=== PATIENT | female | born 1945 | race Caucasian/White ===

== ENCOUNTER 2020-07-31 12:23 | Outpatient (REF) | payer MEDICARE, SELFPAY ==
--- NOTE | 2020-07-31 12:30 | MM_ITS ---
EXAMINATION: MM SCREENING DIGITAL BREAST TOMOSYNTHESIS, BILATERAL CLINICAL INFORMATION: Screening. Asymptomatic. The lifetime risk of breast cancer based on the Tyrer-Cuzick Model is 2%. COMPARISON: Mammography: 07/04/2019, 05/19/2018 TECHNIQUE: Digital breast tomosynthesis is performed in both the craniocaudal and mediolateral oblique views along with computer-aided detection (CAD). Synthesized 2D images are generated from the tomosynthesis. Additional right exaggerated CC view is provided. FINDINGS: There are scattered areas of fibroglandular density (ACR BI-RADS breast composition Category b). Breast tissue composition borders on heterogeneously dense in the anterior outer quadrants. Parenchymal pattern is similar to prior studies. There is no developing density or interval mass or architectural abnormality. There are scattered benign round and rim and coarse calcifications. Some benign grouped calcifications again noted central and upper outer left breast. No significant changes. MM/MM tomosynthesis screening BI IMPRESSION: No significant changes from prior studies. ASSESSMENT: BI-RADS 2: Benign RECOMMENDATION: Routine annual mammography screening. This patient's information was entered into a reminder system with a target due date for their next mammogram.
== END 2020-07-31 12:24 | disposition home or self-care (01) ==
LOC: HO.MAMMO 12:23
PROVIDERS: PCP Internal Medicine; Visit Provider Internal Medicine
DX: Z12.31 Encounter for screening mammogram for malignant neoplasm of breast (principal)
CPT/HCPCS: 77063; 77067

== ENCOUNTER 2020-08-06 13:05 | Outpatient (REF) | payer MEDICARE, SELFPAY ==
--- NOTE | 2020-08-06 13:13 | XR_ITS ---
EXAMINATION: XR HAND/WRIST, RIGHT CLINICAL INFORMATION: Fall with right hand/wrist pain COMPARISON: None TECHNIQUE: 3 views of the right hand/wrist FINDINGS: No fracture or dislocation. Alignment is anatomic. There is joint space narrowing at the first carpal metacarpal joint with sclerosis and osteophyte formation. Subchondral cyst formation noted. The digits are well aligned. Small osteophytes at the first interphalangeal joint. The soft tissues are unremarkable. XR/XR hand wrist RT IMPRESSION: No acute fracture or malalignment. Advanced degenerative changes of the first carpometacarpal joint.
== END 2020-08-06 13:06 | disposition home or self-care (01) ==
LOC: HO.HMGCX 13:05
PROVIDERS: PCP Internal Medicine; Visit Provider Nurse Practitioner Family
DX: S69.91XA Unspecified injury of right wrist, hand and finger(s), initial encounter (principal); W19.XXXA Unspecified fall, initial encounter; Z20.828 Contact with and (suspected) exposure to other viral communicable diseases
CPT/HCPCS: 73110; 73130; U0003

== ENCOUNTER → 2020-12-10 12:22 | Outpatient (BNVA) | payer MEDICARE, SELFPAY | PROVIDERS: PCP Internal Medicine; Visit Provider Internal Medicine Cardiovascular Disease | DX: I25.10 Atherosclerotic heart disease of native coronary artery without angina pectoris (principal); I10 Essential (primary) hypertension | CPT/HCPCS: 99212 ==

== ENCOUNTER 2021-01-16 09:30 | Outpatient (REF) | payer MEDICARE, SELFPAY ==
[2021-01-16 11:26] LABS: MANUAL DIFF FLAG NO
[2021-01-16 11:53] LABS: Basophils Absolute Auto 0.1 X10*3/uL (0.0-0.2); Eosinophils Absolute Auto 0.2 X10*3/uL (0.0-0.4); Eosinophils Percent Auto 3.8 % (0-4); Hematocrit 39.6 % (37-47); Hemoglobin 12.8 g/dl (12.0-16.0); Imm Gran Abs Auto 0.02 X10*3/uL (0.00-0.03); Imm Gran Pct Auto 0.3 % (0.0-0.4); Lymphocytes Absolute Auto 1.1 X10*3/uL (1.2-4.9); Lymphocytes Percent Auto 18.8 % (20-40); Mean Corpuscular HGB Conc 32.3 g/dl (31.0-35.0); Mean Corpuscular Volume 89.6 fL (80-98); Mean Platelet Volume 11.2 fL (9.4-12.3); Monocytes Absolute Auto 0.4 X10*3/uL (0.1-1.2); Monocytes Percent Auto 7.2 % (2-11); Neutrophils Percent Auto 68.9 % (45-73); Platelet Count 214 X10*3/uL (160-400); Red Blood Count 4.42 X10*6/uL (4.20-5.50); Red Cell Distribution Width 12.6 % (11.0-16.0); White Blood Count 5.8 X10*3/uL (4.8-10.8)
[2021-01-16 12:12] LABS: Alanine Aminotransferase 16 U/L (0-31); Albumin Level 4.2 g/dL (3.5-5.0); Alkaline Phosphatase 79 U/L (39-117); Anion Gap 15 (12-20); Aspartate Amino Transferase 20 U/L (5-31); Bilirubin Total 0.6 mg/dL (0.0-1.0); Blood Urea Nitrogen 13 mg/dL (9-16); Calcium 9.1 mg/dL (8.4-10.2); Carbon Dioxide 25 mmol/L (22-29); Chloride 104 mmol/L (96-108); Cholesterol 132 mg/dL; Estimated Glomerular Filt Rate 55; Glucose Random 89 mg/dL (60-115); HDL Cholesterol 52 mg/dL; LDL Cholesterol Calculated 57 mg/dl; Potassium 4.5 mmol/L (3.3-5.1); Sodium 139 mmol/L (135-145); Triglycerides 118 mg/dL
[2021-01-16 12:21] LABS: Thyroid Stimulating Hormone 1.05 uIU/mL (0.32-4.0)
[2021-01-16 12:35] LABS: ~HepC Num1 0.11 S/CO (0.00-0.79); ~Hepatitis C Antibody Nonreactive (Nonreactive)
== END 2021-01-16 09:31 | disposition home or self-care (01) ==
LOC: HO.HMGCLDS 09:30
PROVIDERS: Visit Provider Internal Medicine
DX: Z11.59 Encounter for screening for other viral diseases (principal); I10 Essential (primary) hypertension; E78.00 Pure hypercholesterolemia, unspecified; K21.9 Gastro-esophageal reflux disease without esophagitis
CPT/HCPCS: 36415; 80053; 80061; 84443; 85025; 86803

== ENCOUNTER 2021-01-21 08:16 | Day surgery (SDC) | payer MEDICARE, SELFPAY ==
[2021-01-15 15:46] VITALS: BMI 33.0
--- NOTE | 2021-01-16 12:19 | MHC.SHP ---
Pre-Procedural Eval Section A The patient is an INPATIENT: No The History & Physical has been completed within 30 days and I have reviewed it.: Yes Section B Chief Complaint: Cataract Right Eye Allergies: Allergies Allergy/AdvReac Type Severity Reaction Status Date / Time pentazocine [From Talwin] Allergy Severe HALLUCINATI Unverified 01/15/21 15:33 ONS trimethoprim [From Bactrim] Allergy Severe FACIAL RASH Unverified 01/15/21 15:33 meperidine [From Demerol] Allergy Unknown Verified 01/15/21 15:33 morphine Allergy Nausea and Verified 01/15/21 15:33 Vomiting sulfite Allergy Unknown Verified 01/15/21 15:33 codeine [Codeine] AdvReac Severe CONSTIPATION/ABDOMINAL Unverified 01/15/21 15:33 PAIN [id number]-[id number]-Rmq Reductase AdvReac Severe GI UPSET Unverified 01/15/21 15:33 Inhibitor [Hmg-Coa Reductase Inhibitors (Stati] amoxacillin Allergy Severe rash Uncoded 01/15/21 15:33 sulfa Allergy Severe rash Uncoded 01/15/21 15:33 Plan Diagnosis/Plan: Unchanged I have reviewed the history and physical and performed a pertinent physical examination on my patient. No changes have occurred unless specified.
--- NOTE | 2021-01-18 09:35 | HO.ANESPROP2 ---
Documented by User: Joanna Emerson 01/18/21 09:35 HPI - Anesthesia Eval Consult details Narrative: 75yo F for Right Cataract Extraction IOL Insertion No prev cataract on record PCP cleared PMFSH Active Problems Active Problems: All Active Problems (Updated 01/15/21 @ 15:46 by Brenda Elizabeth) Fall (Acute) Right wrist injury (Acute) Encounter for screening laboratory testing for COVID-19 virus (Acute) Hyperlipidemia (Acute) HTN (hypertension) (Acute) CAD (coronary artery disease) (Acute) Past Medical History Medical History (Updated 01/21/21 @ 10:19 by Keiry Bashir) Anxiety CAD (coronary artery disease) COVID-19 vaccine series completed HTN (hypertension) Hx of basal cell carcinoma Hyperlipidemia Peripheral neuropathy Family History Family History Father No problems noted. Mother CVD (cardiovascular disease) Surgical History Surgical History H/O angioplasty History of cataract extraction Hx laparoscopic cholecystectomy Hx of bilateral salpingo-oophorectomy Hx of fusion of cervical spine Hx of hernia repair Hx of spinal fusion Stented coronary artery Social History Social History Smoking Status: Never smoker Use of substances other than those prescribed or required for medical reasons: No Are you DNR?: No Advance Directives: No Advance Directives Information Provided: No Advance Directives on File: No Meds Allergies Allergy/AdvReac Type Severity Reaction Status Date / Time pentazocine [From Talwin] Allergy Severe HALLUCINATI Verified 01/21/21 09:41 ONS trimethoprim [From Bactrim] Allergy Severe FACIAL RASH Verified 01/21/21 09:41 meperidine [From Demerol] Allergy Unknown Verified 01/15/21 15:33 morphine Allergy Nausea and Verified 01/15/21 15:33 Vomiting sulfite Allergy Unknown Verified 01/15/21 15:33 codeine [Codeine] AdvReac Severe CONSTIPATION/ABDOMINAL Verified 01/21/21 09:41 PAIN [id number]-Yqe Reductase AdvReac Severe GI UPSET Verified 01/21/21 09:41 Inhibitor [Hmg-Coa Reductase Inhibitors (Stati] amoxacillin Allergy Severe rash Uncoded 01/15/21 15:33 sulfa Allergy Severe rash Uncoded 01/15/21 15:33 Home Medications Medication Instructions Recorded Confirmed Last Taken Type azelastine 137 mcg (0.1 %) nasal 2 spray INTRANASAL 08/06/20 12/10/20 Unknown History spray aerosol collagenase clostridium histo. 250 TOPICAL DAILY 08/06/20 12/10/20 Unknown History unit/gram topical ointment ezetimibe 10 mg tablet 10 mg PO DAILY 08/06/20 01/15/21 Unknown History famotidine 20 mg tablet 20 mg PO BID PRN 08/06/20 01/15/21 01/21/21 History gabapentin 300 mg capsule 300 mg PO TID 08/06/20 01/15/21 01/21/21 History losartan 100 mg tablet 100 mg PO DAILY 08/06/20 01/15/21 Unknown History nitroglycerin 0.4 mg sublingual 0.4 mg SUBLINGUAL .Q5MINS PRN 08/06/20 01/15/21 Unknown History tablet sertraline 50 mg tablet 50 mg PO DAILY 08/06/20 01/15/21 01/21/21 History tizanidine 4 mg tablet 4 mg PO TID PRN 08/06/20 01/15/21 Unknown History Exam Exam Date and Time: January 18, 2021 0935 Height,Weight and Vital Signs: Height 5 ft 1 in Weight 79.379 kg Assessment and Plan Assessment Anesthesia Assessment: Chart Reviewed Documented by User: Keiry Bashir 01/21/21 10:19 [facility] Past Medical History Medical History (Updated 01/21/21 @ 10:19 by Keiry Bashir) Anxiety CAD (coronary artery disease) COVID-19 vaccine series completed HTN (hypertension) Hx of basal cell carcinoma Hyperlipidemia Peripheral neuropathy Family History Family History Father No problems noted. Mother CVD (cardiovascular disease) Family history of problems with anesthesia: No Surgical History Surgical History H/O angioplasty History of cataract extraction Hx laparoscopic cholecystectomy Hx of bilateral salpingo-oophorectomy Hx of fusion of cervical spine Hx of hernia repair Hx of spinal fusion Stented coronary artery History of Problems with Anesthesia: No Social History Social History Smoking Status: Never smoker Use of substances other than those prescribed or required for medical reasons: No Are you DNR?: No Advance Directives: No Advance Directives Information Provided: No Advance Directives on File: No Meds Allergies Allergy/AdvReac Type Severity Reaction Status Date / Time pentazocine [From Talwin] Allergy Severe HALLUCINATI Verified 01/21/21 09:41 ONS trimethoprim [From Bactrim] Allergy Severe FACIAL RASH Verified 01/21/21 09:41 meperidine [From Demerol] Allergy Unknown Verified 01/15/21 15:33 morphine Allergy Nausea and Verified 01/15/21 15:33 Vomiting sulfite Allergy Unknown Verified 01/15/21 15:33 codeine [Codeine] AdvReac Severe CONSTIPATION/ABDOMINAL Verified 01/21/21 09:41 PAIN Vzpjctt-Tpq-Xur Reductase AdvReac Severe GI UPSET Verified 01/21/21 09:41 Inhibitor [Hmg-Coa Reductase Inhibitors (Stati] amoxacillin Allergy Severe rash Uncoded 01/15/21 15:33 sulfa Allergy Severe rash Uncoded 01/15/21 15:33 Home Medications Medication Instructions Recorded Confirmed Last Taken Type azelastine 137 mcg (0.1 %) nasal 2 spray INTRANASAL 08/06/20 12/10/20 Unknown History spray aerosol collagenase clostridium histo. 250 TOPICAL DAILY 08/06/20 12/10/20 Unknown History unit/gram topical ointment ezetimibe 10 mg tablet 10 mg PO DAILY 08/06/20 01/15/21 Unknown History famotidine 20 mg tablet 20 mg PO BID PRN 08/06/20 01/15/21 01/21/21 History gabapentin 300 mg capsule 300 mg PO TID 08/06/20 01/15/21 01/21/21 History losartan 100 mg tablet 100 mg PO DAILY 08/06/20 01/15/21 Unknown History nitroglycerin 0.4 mg sublingual 0.4 mg SUBLINGUAL .Q5MINS PRN 08/06/20 01/15/21 Unknown History tablet sertraline 50 mg tablet 50 mg PO DAILY 08/06/20 01/15/21 01/21/21 History tizanidine 4 mg tablet 4 mg PO TID PRN 08/06/20 01/15/21 Unknown History Exam Height,Weight and Vital Signs: Vital Signs Temp Pulse Resp BP Pulse Ox 01/21/21 10:11 97.8 F 65 16 155/72 H 99 Airway Mallampati Class: II TM Dist: >3cm Neck ROM: Full (S/ p cervical fusion) Partial: Upper Heart: RRR Lungs: CTAB Assessment and Plan Assessment Anesthesia Assessment: Anesthesia Plan Discussed and Chart Reviewed Final Anesthetic Review ASA Class: III Final Preanesthetic Review: No Changes in Pt Med Stat, Meds/Allgs Chart Reviewed, Consent Obtained/Reviewed and Anes Risks/Benef Reviewed Patient Risk: Intermediate Procedure Risk: Low Assessment/Block/Sedation in SS: Assess/Block/Sedation-SS Anesthetic Plan Anesthetic Plan: MAC: Disposition: Standard PACU
[2021-01-21] MEDS: Tetracaine HCl/PF 0.5% Oph Sol 4 ML DROPS 1 DROP EYE-RIGHT (09:52)
[2021-01-21] MEDS: Tropicamide 1 % Ophth Sol 3 ML BTL 1 DROP EYE-RIGHT ×3 (09:54→10:02)
[2021-01-21] MEDS: Phenylephrine HCL 2.5% Oph SoL 2 ML BOTTLE 1 DROP EYE-RIGHT ×3 (09:57→10:04)
[2021-01-21 10:11] VITALS: BP 155/72; PULSE 65; RESP 16; TEMP 36.6; O2SAT 99
[2021-01-21] MEDS: Lactated Ringers 500 ML 50 ML IV (10:11)
--- NOTE | 2021-01-21 11:15 | HO.PNOPHT ---
Ophthalmology Procedure Procedure Date of Service: 01/21/21 Ophthalmology Viscoelastic: Healon Duet Dual Pack Pro Ophthalmology Lenses: TECNIS [id number] (22.5) Procedure Notes: PREOPERATIVE DIAGNOSIS: Decreased visual acuity right eye secondary to cataract POSTOPERATIVE DIAGNOSIS: Same PROCEDURE: Right cataract extraction with intraocular lens insertion SURGEON: Jus Juarez M.D. ANESTHESIA: Topical/MAC ESTIMATED BLOOD LOSS: None COMPLICATIONS: None After obtaining informed consent, the patient was brought to the operating room suite and placed in the supine position. After adequate sedation per anesthesia, topical drops of Tetracaine were given to the right eye. The eye was then prepped and draped in the usual sterile fashion. The operating room microscope was then positioned over the operative eye and a lid speculum placed. A paracentesis was created. Viscoelastic was then instilled into the anterior chamber. A three plane incision was then created temporally, utilizing a 2.85 mm keratome. Capsulotomy forceps were then utilized to create a circular tear capsulotomy. Hydrodissection and hydrodelineation were carried out until adequate mobilization of the nucleus occurred. Phacoemulsification was then utilized to remove the dense central nucleus followed by removal of the cortical material utilizing the automated aspiration irrigation unit. Viscoelastic was instilled into the posterior capsular bag followed by placement of a posterior chamber intraocular lens without difficulty. The residual Viscoelastic was then removed utilizing the automated IA machine. The wound was checked and found to be watertight. The patient tolerated the procedure well and the lid speculum was removed. Intracameral injection of Vigamox 0.1 mL followed by a subtenon injection of Kenalog-40 0.2 mL were administered. The patient will be seen in the a.m.
[2021-01-21 11:19] VITALS: BP 145/68; PULSE 61; RESP 16; TEMP 36.3; O2SAT 98
== END 2021-01-21 11:42 | disposition home or self-care (01) ==
PROVIDERS: PCP Internal Medicine; Visit Provider Ophthalmology
PROC: (CPT 66985; principal; 2021-01-21 10:30)
DX: H25.11 Age-related nuclear cataract, right eye (principal); H54.7 Unspecified visual loss; Z96.1 Presence of intraocular lens; I10 Essential (primary) hypertension; Z79.899 Other long term (current) drug therapy; Z85.828 Personal history of other malignant neoplasm of skin; Z88.1 Allergy status to other antibiotic agents; Z88.2 Allergy status to sulfonamides; Z88.8 Allergy status to other drugs, medicaments and biological substances
CPT/HCPCS: 66984; J2250; J3010; J3300; V2632

== ENCOUNTER → 2021-01-31 13:06 | Outpatient (BNVA) | payer MEDICARE, SELFPAY | PROVIDERS: PCP Internal Medicine; Visit Provider Urology | DX: N32.81 Overactive bladder (principal); N39.41 Urge incontinence | CPT/HCPCS: 51798; 81002; 99212 ==

== ENCOUNTER 2021-05-03 12:35 | Outpatient (REF) | payer MEDICARE, SELFPAY ==
--- NOTE | ~2021-05-03 | MM_ITS ---
EXAMINATION: BONE DENSITOMETRY CLINICAL INDICATION: Menopausal. COMPARISON: Previous BD dated 03/13/2015 and baseline BD dated 06/24/2011. TECHNIQUE: Using a [employer] DXA System (software version: 13.1) manufactured by [employer], dual-energy x-ray absorptiometry was performed of the lumbar spine, left hip, and left forearm radius 33%. The images are of good technical quality. Summary results are attached. FINDINGS: AP SPINE L1-L2 (excluding L3 and L4): The data of L1-L4 has been changed to exclude the L3 and L4 vertebral bodies, because hardware at these levels may cause overestimation of lumbar spine density. Current: BMD 1.501 g/cm2, Z-score 4.2, T-score 2.8, normal, 15.9% increase from previous, 18.3% increase from baseline (<5% change is not significant). Prior: BMD 1.295 g/cm2. Baseline: BMD 1.269 g/cm2. LEFT FEMUR, NECK: Current: BMD 0.744 g/cm2, Z-score -0.4, T-score -2.1, osteopenia. Prior: BMD 0.785 g/cm2. Baseline: BMD 0.831 g/cm2. LEFT FEMUR, TOTAL: Current: BMD 0.840 g/cm2, Z-score 0.2, T-score -1.3, osteopenia, 8.7% decrease from previous, 8.5% decrease from baseline (<5% change is not significant). Prior: BMD 0.920 g/cm2. Baseline: BMD 0.918 g/cm2. LEFT FOREARM RADIUS 33%: BMD 0.702 g/cm2, Z-score 0.5, T-score -2.0, osteopenia, 9.2% decrease from previous, 10.7% decrease from baseline (<5% change is not significant). Prior: BMD 0.773 g/cm2. Baseline: BMD 0.786 g/cm2. IDENTIFIED RISK FACTORS: Early menopause, secondary osteoporosis, height loss, anticonvulsant, hysterectomy, bilateral oophorectomy. HISTORY OF FRACTURE: None listed. MEDICATIONS: Calcium supplements or multivitamin, vitamin D. MM/XR DEXA axial skeleton IMPRESSION: 1. DIAGNOSIS: Osteopenia based on the lowest T-score value of -2.1 in the femoral neck applying World Health Organization criteria. 2. 10-YEAR FRACTURE RISK PREDICTION, FRAX: Major osteoporotic fracture (clinical spine, forearm, hip or shoulder) 14.3%. Hip fracture 4.0%. 3. Treatment Recommendations: NOF guidelines recommend consideration for treatment in postmenopausal women and men age 50 and older presenting with the following: -A hip or vertebral (clinical or morphometric) fracture. -T-score less than or equal to -2.5 at the femoral neck or spine after appropriate evaluation to exclude secondary causes. -Low bone mass at the hip or spine and a 10-year fracture probability by FRAX of greater than or equal to 3% for hip fracture or greater than or equal to 20% for major osteoporotic fracture based on the [place] adapted WHO algorithm. 4. Other Recommendations: All treatment decisions require clinical judgment and consideration of individual patient factors, including patient preferences, comorbidities, previous drug use, risk factors not captured in the FRAX model (e.g. frailty, falls, vitamin D deficiency, increased bone turnover, interval significant decline in bone density) and possible under or overestimation of fracture risk by FRAX. Additional medical evaluation for secondary cause of low bone mineral density may be appropriate. FUTURE SCAN RECOMMENDATION: People with diagnosed cases of osteoporosis or at high risk for fracture should have regular bone mineral density tests. For patients eligible for Medicare, routine testing is allowed once every 2 years. The testing frequency can be increased to one year for patients who have rapidly progressing disease, those who are receiving or discontinuing medical therapy to restore bone mass, or have additional risk factors.
== END 2021-05-03 12:36 | disposition home or self-care (01) ==
LOC: HO.MAMMO 12:35
PROVIDERS: PCP Internal Medicine; Visit Provider Internal Medicine
DX: Z13.820 Encounter for screening for osteoporosis (principal); Z78.0 Asymptomatic menopausal state; Z79.899 Other long term (current) drug therapy; Z90.710 Acquired absence of both cervix and uterus; Z90.722 Acquired absence of ovaries, bilateral
CPT/HCPCS: 77080

== ENCOUNTER 2021-08-02 10:37 | Outpatient (REF) | payer MEDICARE, SELFPAY ==
--- NOTE | ~2021-08-02 | MM_ITS ---
EXAMINATION: MM SCREENING DIGITAL BREAST TOMOSYNTHESIS, BILATERAL CLINICAL INFORMATION: Screening. Asymptomatic. The lifetime risk of breast cancer based on the Tyrer-Cuzick Model is 1%. COMPARISON: Mammography: 07/01/2020, 07/04/2019, 05/19/2018 TECHNIQUE: Digital breast tomosynthesis is performed in both the craniocaudal and mediolateral oblique views along with computer-aided detection (CAD). Synthesized 2D images are generated from the tomosynthesis. Additional exaggerated right CC view is provided. FINDINGS: There are scattered areas of fibroglandular density (ACR BI-RADS breast composition Category b). Breast tissue composition borders on heterogeneously dense. Parenchymal pattern is similar to prior studies. There are scattered stable asymmetries. No developing density or interval mass or architectural abnormality. There are scattered benign round and some ductal secretory and rim calcifications. There are benign grouped coarse calcifications again seen posterior 3:00 left breast. The axilla and skin contours are unremarkable. MM/MM tomosynthesis screening BI IMPRESSION: No mammographic evidence of malignancy. ASSESSMENT: BI-RADS 2: Benign RECOMMENDATION: Routine annual mammography screening. This patient's information was entered into a reminder system with a target due date for their next mammogram.
[2021-08-02 13:54] LABS: MANUAL DIFF FLAG NO
[2021-08-02 14:02] LABS: Basophils Percent Auto 0.7 % (0-2); Eosinophils Absolute Auto 0.2 X10*3/uL (0.0-0.4); Eosinophils Percent Auto 2.5 % (0-4); Hematocrit 39.4 % (37.0-47.0); Hemoglobin 12.9 g/dl (12.0-16.0); Imm Gran Abs Auto 0.01 X10*3/uL (0.00-0.03); Imm Gran Pct Auto 0.2 % (0.0-0.4); Lymphocytes Percent Auto 16.7 % (20-40); Mean Corpuscular HGB Conc 32.7 g/dl (31.0-35.0); Mean Corpuscular Hemoglobin 28.8 pg (27.0-33.0); Mean Corpuscular Volume 87.9 fL (80.0-98.0); Mean Platelet Volume 11.4 fL (9.4-12.3); Monocytes Absolute Auto 0.4 X10*3/uL (0.1-1.2); Monocytes Percent Auto 7.4 % (2-11); Neutrophils Absolute Auto 4.3 x10*3/uL (2.0-8.3); Neutrophils Percent Auto 72.5 % (45-73); Platelet Count 224 X10*3/uL (160-400); Red Blood Count 4.48 X10*6/uL (4.20-5.50); Red Cell Distribution Width 12.7 % (11.0-16.0)
[2021-08-02 14:11] LABS: Appearance Urine CLEAR; Color Urine YELLOW; Glucose Urine UA NEG (NEG); Leukocyte Esterase Urine NEG (NEG); Nitrite Urine NEG (NEG); PH 6.5 (5.0-8.0); Urine Blood NEG (NEG); Urine Ketones NEG (NEG); Urine Protein NEG (NEG-TRACE)
[2021-08-02 14:19] LABS: Alanine Aminotransferase 20 U/L (0-31); Albumin Level 4.2 g/dL (3.5-5.0); Alkaline Phosphatase 76 U/L (39-117); Anion Gap 14 (12-20); Aspartate Amino Transferase 22 U/L (5-31); Bilirubin Total 0.9 mg/dL (0.0-1.0); Blood Urea Nitrogen 11 mg/dL (9-16); Calcium 9.2 mg/dL (8.4-10.2); Carbon Dioxide 26 mmol/L (22-29); Chloride 101 mmol/L (96-108); Cholesterol 139 mg/dL; Estimated Glomerular Filt Rate 55; Glucose Random 89 mg/dL (60-115); HDL Cholesterol 56 mg/dL; LDL Cholesterol Calculated 60 mg/dl; Sodium 137 mmol/L (135-145); Total Protein 7.2 g/dL (6.5-8.0); Triglycerides 118 mg/dL
== END 2021-08-02 10:38 | disposition home or self-care (01) ==
LOC: HO.MAMMO 10:37
PROVIDERS: PCP Internal Medicine; Visit Provider Internal Medicine
DX: Z12.31 Encounter for screening mammogram for malignant neoplasm of breast (principal); I10 Essential (primary) hypertension; I25.10 Atherosclerotic heart disease of native coronary artery without angina pectoris; E78.00 Pure hypercholesterolemia, unspecified
CPT/HCPCS: 36415; 77063; 77067; 80053; 80061; 81003; 84443; 85025

== ENCOUNTER 2021-08-06 14:52 | Outpatient (REF) | payer MEDICARE, SELFPAY ==
[2021-08-06 17:33] LABS: Vitamin B12 746 pg/mL (200-900)
== END 2021-08-06 14:53 | disposition home or self-care (01) ==
LOC: HO.HMGCLDS 14:52
PROVIDERS: PCP Internal Medicine; Visit Provider Internal Medicine
DX: R41.3 Other amnesia (principal)
CPT/HCPCS: 36415; 82607

== ENCOUNTER 2021-08-09 07:16 | Outpatient (REF) | payer MEDICARE, SELFPAY ==
--- NOTE | ~2021-08-09 | MR_ITS ---
MRI OF THE BRAIN WITHOUT IV CONTRAST INDICATION: Short-term memory loss. COMPARISON: Brain MRI 02/04/2019. TECHNIQUE: Multiplanar multisequence MR imaging of the brain was obtained without IV contrast. FINDINGS: There is no hydrocephalus, extra-axial surface collection, or herniation. There is global cerebral volume loss. T2 signal changes throughout the supratentorial white matter, most likely mild to moderate chronic microangiopathy. The major flow voids at the skull base are preserved. There is no acute infarct on diffusion-weighted imaging. There is no intracranial hemorrhage on the gradient recalled echo acquisition. The midline structures are normal. The cerebellar tonsils are normally positioned. The cerebellum and brainstem are normal. The craniocervical junction is normal. Osseous marrow signal intensity is homogenous. The visualized soft tissues are unremarkable. MR/MR head/brain wo con IMPRESSION: - No acute intracranial findings. - There is global cerebral volume loss and there is mild to moderate chronic microangiopathy.
== END 2021-08-09 07:17 | disposition home or self-care (01) ==
LOC: HO.MRI 07:16
PROVIDERS: Visit Provider Internal Medicine
DX: R41.3 Other amnesia (principal)
CPT/HCPCS: 70551

== ENCOUNTER → 2021-12-23 12:33 | Outpatient (BNVA) | payer MEDICARE, SELFPAY | PROVIDERS: PCP Internal Medicine; Referring Provider Internal Medicine; Visit Provider Internal Medicine Cardiovascular Disease | DX: I25.10 Atherosclerotic heart disease of native coronary artery without angina pectoris (principal); I10 Essential (primary) hypertension; Z79.82 Long term (current) use of aspirin; Z79.899 Other long term (current) drug therapy | CPT/HCPCS: 93005; 99212 ==

== ENCOUNTER 2022-03-13 10:30 | Outpatient (REF) | payer MEDICARE, SELFPAY ==
[2022-03-13 13:56] LABS: MANUAL DIFF FLAG NO
[2022-03-13 14:00] LABS: Appearance Urine CLEAR; Color Urine YELLOW; Glucose Urine UA NEG (NEG); Leukocyte Esterase Urine 2+ (NEG); Nitrite Urine NEG (NEG); PH 6.5 (5.0-8.0); Urine Blood NEG (NEG); Urine Ketones NEG (NEG); Urine Protein NEG (NEG-TRACE)
[2022-03-13 14:10] LABS: Basophils Absolute Auto 0.1 X10*3/uL (0.0-0.2); Basophils Percent Auto 0.8 % (0-2); Eosinophils Absolute Auto 0.2 X10*3/uL (0.0-0.4); Eosinophils Percent Auto 3.7 % (0-4); Hematocrit 41.1 % (37.0-47.0); Hemoglobin 13.4 g/dl (12.0-16.0); Imm Gran Abs Auto 0.02 X10*3/uL (0.00-0.03); Imm Gran Pct Auto 0.3 % (0.0-0.4); Lymphocytes Absolute Auto 1.2 X10*3/uL (1.2-4.9); Lymphocytes Percent Auto 18.3 % (20-40); Mean Corpuscular HGB Conc 32.6 g/dl (31.0-35.0); Mean Corpuscular Hemoglobin 28.3 pg (27.0-33.0); Mean Corpuscular Volume 86.9 fL (80.0-98.0); Mean Platelet Volume 11.5 fL (9.4-12.3); Monocytes Absolute Auto 0.4 X10*3/uL (0.1-1.2); Monocytes Percent Auto 6.8 % (2-11); Neutrophils Absolute Auto 4.4 x10*3/uL (2.0-8.3); Neutrophils Percent Auto 70.1 % (45-73); Platelet Count 215 X10*3/uL (160-400); Red Blood Count 4.73 X10*6/uL (4.20-5.50); White Blood Count 6.3 X10*3/uL (4.8-10.8)
[2022-03-13 14:12] LABS: RBC Urine 0 /HPF (0); Squamous Epithelial Cell Urine 1+ /LPF
[2022-03-13 14:17] LABS: Alanine Aminotransferase 13 U/L (0-31); Albumin Level 4.1 g/dL (3.5-5.0); Alkaline Phosphatase 74 U/L (39-117); Anion Gap 12 (12-20); Aspartate Amino Transferase 15 U/L (5-31); Bilirubin Total 0.6 mg/dL (0.0-1.0); Blood Urea Nitrogen 12 mg/dL (9-16); Calcium 9.2 mg/dL (8.4-10.2); Carbon Dioxide 25 mmol/L (22-29); Chloride 103 mmol/L (96-108); Cholesterol 128 mg/dL; Estimated Glomerular Filt Rate 52; Glucose Random 97 mg/dL (60-115); HDL Cholesterol 58 mg/dL; LDL Cholesterol Calculated 53 mg/dl; Potassium 4.2 mmol/L (3.3-5.1); Sodium 136 mmol/L (135-145); Triglycerides 85 mg/dL
[2022-03-13 14:32] LABS: Thyroid Stimulating Hormone 1.67 uIU/mL (0.32-4.0)
== END 2022-03-13 10:31 | disposition home or self-care (01) ==
LOC: HO.HMGCLDS 10:30
PROVIDERS: PCP Internal Medicine; Visit Provider Internal Medicine
DX: E78.00 Pure hypercholesterolemia, unspecified (principal); I10 Essential (primary) hypertension; M15.9 Polyosteoarthritis, unspecified
CPT/HCPCS: 36415; 80053; 80061; 81001; 84443; 85025

== ENCOUNTER 2022-08-04 13:22 | Outpatient (REF) | payer MEDICARE, SELFPAY ==
--- NOTE | ~2022-08-04 | MM_ITS ---
EXAMINATION: MM SCREENING DIGITAL BREAST TOMOSYNTHESIS, BILATERAL CLINICAL INFORMATION: Screening. Asymptomatic. COMPARISON: Mammography: 08/02/2021, 07/31/2020, 07/04/2019 TECHNIQUE: Digital breast tomosynthesis is performed in both the craniocaudal and mediolateral oblique views along with computer-aided detection (CAD). Synthesized 2D images are generated from the tomosynthesis. FINDINGS: There are scattered areas of fibroglandular density (ACR BI-RADS breast composition Category b). Parenchymal pattern is similar to prior studies. There is no developing density or interval mass or architectural abnormality. Again, there are scattered bilateral benign round and rim calcifications as well as grouped coarse calcifications posterior 3:00 left breast. A few scattered tiny benign circumscribed oil cysts are present in both the anterior breasts. The axilla and skin contours are unremarkable. No significant changes. MM/MM tomosynthesis screening BI IMPRESSION: No mammographic evidence of malignancy. ASSESSMENT: BI-RADS 2: Benign RECOMMENDATION: Routine annual mammography screening. This patient's information was entered into a reminder system with a target due date for their next mammogram.
== END 2022-08-04 13:23 | disposition home or self-care (01) ==
LOC: HO.MAMMO 13:22
PROVIDERS: Visit Provider Internal Medicine
DX: Z12.31 Encounter for screening mammogram for malignant neoplasm of breast (principal)
CPT/HCPCS: 77063; 77067

== ENCOUNTER → 2022-12-23 12:46 | Outpatient (BNVA) | payer MEDICARE, SELFPAY | PROVIDERS: PCP Internal Medicine; Referring Provider Internal Medicine; Visit Provider Internal Medicine Cardiovascular Disease | DX: I25.10 Atherosclerotic heart disease of native coronary artery without angina pectoris (principal); I10 Essential (primary) hypertension; Z95.5 Presence of coronary angioplasty implant and graft | CPT/HCPCS: 93005; 99212 ==

== ENCOUNTER 2023-01-08 09:27 | Outpatient (REF) | payer MEDICARE, SELFPAY ==
[2023-01-08 11:09] LABS: MANUAL DIFF FLAG NO
[2023-01-08 11:26] LABS: Basophils Absolute Auto 0.1 X10*3/uL (0.0-0.2); Eosinophils Absolute Auto 0.2 X10*3/uL (0.0-0.4); Eosinophils Percent Auto 3.1 % (0-4); Hematocrit 40.1 % (37.0-47.0); Hemoglobin 13.2 g/dl (12.0-16.0); Imm Gran Abs Auto 0.02 X10*3/uL (0.00-0.03); Imm Gran Pct Auto 0.3 % (0.0-0.4); Lymphocytes Absolute Auto 1.1 X10*3/uL (1.2-4.9); Lymphocytes Percent Auto 15.9 % (20-40); Mean Corpuscular HGB Conc 32.9 g/dl (31.0-35.0); Mean Corpuscular Hemoglobin 29.4 pg (27.0-33.0); Mean Corpuscular Volume 89.3 fL (80.0-98.0); Mean Platelet Volume 11.2 fL (9.4-12.3); Monocytes Absolute Auto 0.4 X10*3/uL (0.1-1.2); Monocytes Percent Auto 6.3 % (2-11); Neutrophils Absolute Auto 4.9 x10*3/uL (2.0-8.3); Neutrophils Percent Auto 73.4 % (45-73); Platelet Count 212 X10*3/uL (160-400); Red Blood Count 4.49 X10*6/uL (4.20-5.50); Red Cell Distribution Width 12.5 % (11.0-16.0); White Blood Count 6.7 X10*3/uL (4.8-10.8)
[2023-01-08 11:43] LABS: Alanine Aminotransferase 19 U/L (0-31); Alkaline Phosphatase 80 U/L (39-117); Anion Gap 14 (12-20); Aspartate Amino Transferase 18 U/L (5-31); Bilirubin Total 0.7 mg/dL (0.0-1.0); Blood Urea Nitrogen 11 mg/dL (9-16); Calcium 8.9 mg/dL (8.4-10.2); Carbon Dioxide 25 mmol/L (22-29); Chloride 104 mmol/L (96-108); Cholesterol 130 mg/dL; Estimated Glomerular Filt Rate 52; Glucose Random 90 mg/dL (60-115); HDL Cholesterol 48 mg/dL; LDL Cholesterol Calculated 65 mg/dl; Potassium 4.4 mmol/L (3.3-5.1); Sodium 139 mmol/L (135-145); Total Protein 6.5 g/dL (6.5-8.0); Triglycerides 89 mg/dL
[2023-01-08 11:57] LABS: Estimated Average Glucose 105 mg/dL; Hemoglobin A1c % 5.3 %
[2023-01-08 12:00] LABS: Appearance Urine Clear; Color Urine Yellow; Glucose Urine UA Negative (Negative); Leukocyte Esterase Urine Small (1+) (Negative); Nitrite Urine Negative (Negative); Specific Gravity - Urine 1.015 (1.005-1.025); Thyroid Stimulating Hormone 1.44 uIU/mL (0.32-4.0); UMIC TRIGGER UA YES; Urine Blood Negative (Negative); Urine Ketones Negative (Negative); Urine Protein Negative (Neg-Trace)
[2023-01-08 12:07] LABS: Bacteria Urine None Seen (None Seen); Hyaline Casts Urine 0-2 /LPF (0-2); RBC Urine 0-2 /HPF (0-2)
== END 2023-01-08 09:28 | disposition home or self-care (01) ==
LOC: HO.HMGCLDS 09:27
PROVIDERS: PCP Internal Medicine; Visit Provider Internal Medicine
DX: I10 Essential (primary) hypertension (principal); R73.01 Impaired fasting glucose; R35.0 Frequency of micturition; E78.00 Pure hypercholesterolemia, unspecified
CPT/HCPCS: 36415; 80053; 80061; 81001; 81003; 83036; 84443; 85025

== ENCOUNTER → 2023-12-15 14:22 | Outpatient (REF) | payer MEDICARE, SELFPAY ==
--- NOTE | 2023-12-15 14:25 | CA_ITS ---
Transthoracic Echocardiogram Patient (Last, First, Middle): Yara Bolivar L Gender: Female Date of : 1945 Age: 78 Procedure Date: 12/15/2023 Procedure Type: Transthoracic Echocardiogram Location: OP Height: 152.4 cm Weight: 80.74 kg BSA: 1.78 m2 Heart Rate: bpm BP: 124 / 66 mmHg Applications Administrator: BETO Referring MD: Edd Arevalo MD Symptoms: R60.0 - Localized edema Study Quality: Adequate ECG Rhythm: Sinus Conclusions: - The left ventricular systolic function is normal. The calculated ejection fraction is 61% by biplane method. - There is mild aortic valve regurgitation. - There is mild mitral annular calcification. - Small plaque is seen in the sino tubular ridge. Findings Left Ventricle Normal left ventricular cavity size. There is normal left ventricular wall thickness. The left ventricular systolic function is normal. The calculated ejection fraction is 61% by biplane method. There is no evidence of regional wall motion abnormalities. Evidence suggests grade I (mild) diastolic dysfunction. LV peak GLS -18.8%. Right Ventricle Normal right ventricular cavity size and systolic function. Atria Both atria are normal in size. Aortic Valve There is a normal trileaflet aortic valve. There is mild calcification of the aortic valve. There is mild aortic valve regurgitation. No significant aortic stenosis. Mitral Valve There is mild mitral annular calcification. There is no mitral valve regurgitation. There is no mitral valve stenosis. Pulmonic Valve The pulmonic valve is likely normal. Tricuspid Valve There is trace tricuspid valve regurgitation. There is no evidence of pulmonary hypertension. Great Vessels The asc aorta is normal in size. Small plaque is seen in the sino tubular ridge. Venous The inferior vena cava is mildly dilated and collapses greater than 50% with inspiration. Pericardium/Pleural There is no evidence of pericardial effusion. Prior Study Comparison No significant change compared to prior study dated: 03/30/2020. Measurements 2D Linear Measurements IVSd: 0.95 0.6-0.9/0.6-1.0 cm LVIDd: 3.87 3.9-5.3/4.2-5.9 cm LVIDd Index: 2.17 2.4-3.2/2.2-3.1 cm/m2 LVIDs: 2.34 2.0-3.6 cm LVPWd: 1.03 0.7-1.1 cm LA Diam: 3.20 2.7-3.8/3.0-4.0 cm LAIDs Index: 1.80 1.5-2.3 cm/m2 LV Mass: 148.14 67-162/88-224 g LV Mass Index: 83.23 43-95/49-115 g/m2 LVOT Diam: 1.80 3.0+(-)1.3 cm 2D Systolic Function EF 4C: 61.10 >55% EF 2C: 61.30 >55% EF BiP: 61.20 >55% Mitral Valve MV Pk E: 0.90 MV PK A: 0.95 MV Decel Time: 234.00 E/A: 0.90 E'Lateral: 3.92 E'Medial: 6.20 E/E' Med: 14.40 E/E' Lat: 22.80 PHT: 68.00 MVA PHT: 3.24 Decel [place]: 3.83 Aortic Valve AoV Pk Pierce: 2.01 AoV Mn Pierce: 1.36 AoV VTI: 0.47 AoV Pk Grad: 16.00 Aov Mn Grad: 8.00 GILES Cont.VTI: 1.55 AI Pk Pierce: 3.73 AI [place]: 2.00 LVOT LVOT Pk Pierce: 1.24 LVOT Mn Pierce: 0.81 LVOT VTI: 0.29 LVOT Pk Grad: 6.00 LVOT Mn Grad: 3.00 LVOT Diam: 1.80 LVOT Area: 2.54 Diastolic Function MV Pk E: 0.90 MV Pk A: 0.95 E/A: 0.90 E'Medial: 6.20 E/E' Med: 14.40 E' Laterial: 3.92 E/E' Lat: 22.80 Right Ventricle TAPSE (mm): 19.50 TVS' Pierce: 13.10 Tricuspid Valve TR Pk Pierce: 1.87 TR Pk Grad: 14.00 RA Press: 8.00 RVSP: 22.00 Great Vessels Aorta Sinus of Valsalva: 2.97 2.0-3.[address] [place]: 1.80 1.7-3.4 cm Ao Asc: 3.20 2.1-3.4 cm Updated in Other Vendor System with Status of Final Dominic Aguiar MD electronically signed on 12/15/2023 4:23:57 PM with status of Final
== END ==
LOC: HO.CARD 14:22
PROVIDERS: PCP Internal Medicine; Visit Provider Internal Medicine Cardiovascular Disease
DX: I25.10 Atherosclerotic heart disease of native coronary artery without angina pectoris (principal); I10 Essential (primary) hypertension; R60.0 Localized edema
CPT/HCPCS: 93306; 93356

== ENCOUNTER → 2023-12-15 14:25 | Outpatient (BNV) | payer MEDICARE, SELFPAY | PROVIDERS: PCP Internal Medicine; Visit Provider Internal Medicine | DX: I35.1 Nonrheumatic aortic (valve) insufficiency (principal); I34.81 Nonrheumatic mitral (valve) annulus calcification | CPT/HCPCS: 93306; 93356 ==

== ENCOUNTER 2023-12-23 09:29 | Outpatient (REF) | payer MEDICARE, SELFPAY ==
[2023-12-23 10:23] LABS: MANUAL DIFF FLAG NO
[2023-12-23 10:34] LABS: Basophils Absolute Auto 0.1 X10*3/uL (0.0-0.2); Basophils Percent Auto 0.9 % (0-2); Eosinophils Absolute Auto 0.3 X10*3/uL (0.0-0.4); Eosinophils Percent Auto 4.5 % (0-4); Hematocrit 40.4 % (37.0-47.0); Hemoglobin 13.4 g/dl (12.0-16.0); Imm Gran Abs Auto 0.02 X10*3/uL (0.00-0.03); Imm Gran Pct Auto 0.3 % (0.0-0.4); Lymphocytes Percent Auto 15.1 % (20-40); Mean Corpuscular HGB Conc 33.2 g/dl (31.0-35.0); Mean Corpuscular Hemoglobin 28.9 pg (27.0-33.0); Mean Corpuscular Volume 87.1 fL (80.0-98.0); Mean Platelet Volume 10.9 fL (9.4-12.3); Monocytes Absolute Auto 0.5 X10*3/uL (0.1-1.2); Monocytes Percent Auto 7.1 % (2-11); Neutrophils Absolute Auto 4.7 x10*3/uL (2.0-8.3); Neutrophils Percent Auto 72.1 % (45-73); Platelet Count 213 X10*3/uL (160-400); Red Blood Count 4.64 X10*6/uL (4.20-5.50); Red Cell Distribution Width 13.2 % (11.0-16.0); White Blood Count 6.5 X10*3/uL (4.8-10.8)
[2023-12-23 11:25] LABS: Estimated Average Glucose 103 mg/dL; Hemoglobin A1c % 5.2 % (<6.0)
[2023-12-23 11:43] LABS: Alanine Aminotransferase 18 U/L (0-31); Albumin Level 3.9 g/dL (3.5-5.0); Alkaline Phosphatase 78 U/L (39-117); Anion Gap 12 (12-20); Aspartate Amino Transferase 21 U/L (5-31); Bilirubin Total 0.6 mg/dL (0.0-1.0); Blood Urea Nitrogen 14 mg/dL (9-16); Carbon Dioxide 27 mmol/L (22-29); Chloride 104 mmol/L (96-108); Cholesterol 127 mg/dL (<200); Estimated Glomerular Filt Rate 55; Glucose Random 86 mg/dL (60-115); HDL Cholesterol 53 mg/dL (>40); LDL Cholesterol Calculated 55 mg/dL (<100); Potassium 3.8 mmol/L (3.3-5.1); Sodium 139 mmol/L (135-145); Total Protein 7.1 g/dL (6.5-8.0); Triglycerides 98 mg/dL (<150)
[2023-12-23 12:03] LABS: Vitamin B12 1143 pg/mL (200-900)
[2023-12-23 12:15] LABS: Vitamin D 25-OH Total 59.5 ng/mL (>30)
[2023-12-23 13:52] LABS: Appearance Urine Clear; Color Urine Yellow; Glucose Urine UA Negative (Negative); Leukocyte Esterase Urine Small (1+) (Negative); Nitrite Urine Negative (Negative); UMIC TRIGGER UA YES; Urine Blood Negative (Negative); Urine Ketones Negative (Negative); Urine Protein Negative (Neg-Trace)
[2023-12-23 13:59] LABS: Bacteria Urine None Seen (None Seen); Hyaline Casts Urine 0-2 /LPF (0-2); RBC Urine 0-2 /HPF (0-2); Squamous Epithelial Cell Urine 0-2 /HPF (0-2)
== END 2023-12-23 09:30 | disposition home or self-care (01) ==
LOC: HO.HMGCLDS 09:29
PROVIDERS: Visit Provider Internal Medicine
DX: G62.9 Polyneuropathy, unspecified (principal); I10 Essential (primary) hypertension; E78.00 Pure hypercholesterolemia, unspecified; E55.9 Vitamin D deficiency, unspecified; R73.01 Impaired fasting glucose
CPT/HCPCS: 36415; 80053; 80061; 81001; 82306; 82607; 83036; 85025

== ENCOUNTER 2023-12-25 09:23 | Outpatient (REF) | payer MEDICARE, SELFPAY ==
--- NOTE | ~2023-12-25 | MM_ITS ---
EXAMINATION: MM SCREENING DIGITAL BREAST TOMOSYNTHESIS, BILATERAL CLINICAL INFORMATION: Screening. Asymptomatic. COMPARISON: Mammography: This study is compared with prior exams dating back to 2019. TECHNIQUE: Digital breast tomosynthesis is performed in both the craniocaudal and mediolateral oblique views along with computer-aided detection (CAD). Synthesized 2D images are generated from the tomosynthesis. FINDINGS: There are scattered areas of fibroglandular density (ACR BI-RADS breast composition Category b). There are no significant masses, abnormal calcifications, or other abnormalities. There is an area of unchanged, grouped, coarse benign calcification in the upper outer quadrant of the left breast. MM/MM tomosynthesis screening BI IMPRESSION: No mammographic evidence of malignancy. ASSESSMENT: BI-RADS BI-RADS 2 - Benign Findings RECOMMENDATION: Routine annual mammography screening. 1 year F/U This examination should not preclude the clinical evaluation of a suspicious palpable abnormality. This patient's information was entered into a reminder system with a target due date for their next mammogram.
== END 2023-12-25 09:24 | disposition home or self-care (01) ==
LOC: HO.MAMMO 09:23
PROVIDERS: PCP Internal Medicine; Visit Provider Internal Medicine
DX: Z12.31 Encounter for screening mammogram for malignant neoplasm of breast (principal)
CPT/HCPCS: 77063; 77067

== ENCOUNTER → 2023-12-25 09:45 | Outpatient (BNV) | payer MEDICARE, SELFPAY | PROVIDERS: PCP Internal Medicine; Visit Provider Radiology Diagnostic Radiology | DX: Z12.31 Encounter for screening mammogram for malignant neoplasm of breast (principal) | CPT/HCPCS: 77063; 77067 ==

== ENCOUNTER 2023-12-29 09:37 | Outpatient (AMB) | payer MEDICARE, SELFPAY ==
--- NOTE | 2023-12-29 09:38 | A.OFFVIS_ITS ---
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 Allergies pentazocine [From Talwin] Allergy (Severe, Verified 01/31/21 13:13) HALLUCINATIONS trimethoprim [From Bactrim] Allergy (Severe, Verified 01/31/21 13:13) FACIAL RASH meperidine [From Demerol] Allergy (Verified 01/31/21 13:13) Unknown morphine Allergy (Verified 01/31/21 13:13) Nausea and Vomiting sulfite Allergy (Verified 01/31/21 13:13) Unknown codeine [Codeine] Adverse Reaction (Severe, Verified 01/31/21 13:13) CONSTIPATION/ABDOMINAL PAIN Mpfzxhe-WKE-OgF Reductase Inhibitor [Hmg-Coa Reductase Inhibitors (Stati] Adverse Reaction (Severe, Verified 01/31/21 13:13) GI UPSET amoxacillin Allergy (Severe, Uncoded 01/15/21 15:33) rash sulfa Allergy (Severe, Uncoded 01/15/21 15:33) rash Medication List - Last Reconciled 12/29/23 by Edd Arevalo MD amlodipine 5 mg PO DAILY azelastine 2 sprays intranasal collagenase clostridium histo. topical DAILY evolocumab (Repatha SureClick) 140 mg subcut Q2W ezetimibe 10 mg PO DAILY famotidine 20 mg PO BID PRN gabapentin 300 mg PO TID isosorbide mononitrate ER 60 mg PO DAILY losartan 100 mg PO DAILY metoprolol succinate ER 50 mg PO DAILY mirabegron ER (Myrbetriq) 50 mg PO DAILY nitroglycerin 0.4 mg sublingual .Q5MINS PRN sertraline 50 mg PO DAILY HPI HPI Comments History of Present Illness Details Yara comes for follow-up. She said before going to [place] in August her amlodipine was increased to 5 and all the time in [place] she had significant swelling in her feet and around the ankles as well as the fingers. She could not get her rings on. She is very bothered by these. She was prescribed Lasix but she has not started taking it. She has been not very functional due to balance issues. She is gained about 10 lb. No abdominal distension. Denies any orthopnea, PND, lightheadedness. No exertional chest pain. Takes all medications. Her blood pressures remained control [facility] Medical History Nocturia Urgency incontinence Hx of basal cell carcinoma COVID-19 vaccine series completed Anxiety Peripheral neuropathy Hyperlipidemia HTN (hypertension) CAD (coronary artery disease) Surgical History Hx of fusion of cervical spine History of cataract extraction H/O angioplasty Stented coronary artery Hx of bilateral salpingo-oophorectomy Hx of hernia repair Hx of spinal fusion Hx laparoscopic cholecystectomy Family History Father No problems noted. Mother CVD (cardiovascular disease) Review of Systems Const Denies chills, Denies fatigue, Denies fever(s), Denies frequent falls, Denies weakness, Denies weight gain and Denies weight loss ENT Denies dizziness Card Denies chest pain, Reports pedal edema, Denies lightheadedness, Denies palpitations, Denies dyspnea, Denies dyspnea on exertion, Denies orthopnea and Denies other (loss of consciousness) Resp Denies cough, Denies dyspnea and Denies dyspnea on exertion GI Denies hematochezia and Denies change in stool character Musc Denies abnormal gait, Denies muscle weakness, Denies numbness, Denies radiating pain into limb and Denies tingling Neuro Denies abnormal gait, Denies dizziness, Denies frequent falls, Denies numbness, Denies tingling and Denies weakness Endo Denies fatigue and Denies palpitations Physical Exam Vital Signs: Last Vital Signs Pulse 70 12/29/23 09:39 BP 120/80 12/29/23 09:39 BMI result Body Mass Index 34.2 Office Procedures EKG Details: EKG shows normal sinus rhythm with poor R-wave progression most likely lead placement. [id number], Complete Assessment & Plan Assessment & Plan (1) CAD (coronary artery disease): Comment: Denies recent chest pain Code(s): I25.10 - Atherosclerotic heart disease of [place] coronary artery without angina pectoris Plan: CAD with remote LAD stenting with no recent symptoms of angina. Continue aggressive medical therapy. Currently on dual therapy with PCSK9 inhibitor therapy and ezetimibe. Target goal LDL closer to 60 mg/dL. Continue low-dose aspirin therapy for life. Continue aggressive blood pressure control. See below. (2) HTN (hypertension): Code(s): I10 - Essential (primary) hypertension Plan: Hypertension with diffuse swelling most likely to amlodipine therapy and vaso dilatation. Will reduce amlodipine to 2.5 mg daily. Advised to follow-up blood pressure at home. If blood pressure remains less than 130 systolic and her generalized tissue swelling has improved will continue with amlodipine. However if she persists with tissue swelling will switch her to chlorthalidone 25 mg and discontinue amlodipine therapy. Continue metoprolol and isosorbide. Low-salt diet was advised. She says she can not put on compression stockings. Will follow up in the clinic in 1 year's time, sooner p.r.n.. Thank you for allowing me to partake in the care Medications: Changed From amlodipine 5 mg PO DAILY 30 tabs 7RF To amlodipine 2.5 mg (1/2 x 5 mg) PO DAILY 30 tabs 7RF Coding Level of Care Code Est Pt Level 4 (05749) Diagnoses CAD (coronary artery disease) I25.10 HTN (hypertension) I10 CPT Codes EKG - CPT: 21098-Zzacjrvnadflfkgzn, Complete ([id number])
[2023-12-29 09:39] VITALS: BP 120/80; PULSE 70; BMI 34.2
== END 2023-12-29 10:15 | disposition home or self-care (01) ==
PROVIDERS: PCP Internal Medicine; Visit Provider Internal Medicine Cardiovascular Disease
DX: I25.10 Atherosclerotic heart disease of native coronary artery without angina pectoris (principal); I10 Essential (primary) hypertension
CPT/HCPCS: 93010; 99214

== ENCOUNTER → 2023-12-29 09:37 | Outpatient (BNVA) | payer MEDICARE, SELFPAY | PROVIDERS: Visit Provider Internal Medicine Cardiovascular Disease | DX: I25.10 Atherosclerotic heart disease of native coronary artery without angina pectoris (principal); I10 Essential (primary) hypertension | CPT/HCPCS: 93005; 99212 ==

== ENCOUNTER 2024-05-05 10:53 | Outpatient (REF) | payer MEDICARE, SELFPAY ==
--- NOTE | ~2024-05-05 | MM_ITS ---
EXAMINATION: BONE DENSITOMETRY CLINICAL INDICATION: Postmenopausal estrogen deficiency. COMPARISON: Previous BD dated 05/03/2021 and baseline BD dated 06/24/2011. TECHNIQUE: Using a [employer] DXA System (software version: 13.1) manufactured by [employer] dual-energy x-ray absorptiometry was performed of the lumbar spine, left hip and left forearm radius 33%. The images are of good technical quality. Summary results are attached. FINDINGS: LEFT FEMUR, NECK: Current: BMD 0.738 g/cm2, Z-score -0.4, T-score -2.2, osteopenia. Prior: BMD 0.744 g/cm2. Baseline: BMD 0.831 g/cm2. LEFT FEMUR, TOTAL: Current: BMD 0.829 g/cm2, Z-score 0.2, T-score -1.4, osteopenia, 1.3% decrease from previous, 9.7% decrease from baseline (<5% change is not significant). Prior: BMD 0.840 g/cm2. Baseline: BMD 0.918 g/cm2. AP SPINE L1-L2 (excluding L3 and L4): The data of L1-L4 has been changed to exclude the L3 and L4 vertebral bodies, because metallic hardware at these levels may cause overestimation of lumbar spine density. Current: BMD 1.416 g/cm2, Z-score 3.4, T-score 2.1, normal, 5.7% decrease from previous, 11.6% increase from baseline (<5% change is not significant). Prior: BMD 1.501 g/cm2. Baseline: BMD 1.269 g/cm2. LEFT FOREARM RADIUS 33%: BMD 0.681 g/cm2, Z-score 0.5, T-score -2.2, osteopenia, 3.0% decrease from previous, 13.4% decrease from baseline (<5% change is not significant). Prior: BMD 0.702 g/cm2. Baseline: BMD 0.786 g/cm2. IDENTIFIED RISK FACTORS: Early menopause, secondary osteoporosis, hysterectomy, bilateral oophorectomy, anticonvulsant, height loss. HISTORY OF FRACTURE: None listed. MEDICATIONS: Vitamin D. MM/XR DEXA appendicular skeleton IMPRESSION: 1. DIAGNOSIS: Osteopenia based on the lowest T-score value of -2.2 in the femoral neck and forearm radius 33% applying World Health Organization criteria. 2. 10-YEAR FRACTURE RISK PREDICTION, FRAX: Major osteoporotic fracture (clinical spine, forearm, hip or shoulder) 15.5%. Hip fracture 4.7%. 3. Treatment Recommendations: NOF guidelines recommend consideration for treatment in postmenopausal women and men age 50 and older presenting with the following: -A hip or vertebral (clinical or morphometric) fracture. -T-score less than or equal to -2.5 at the femoral neck or spine after appropriate evaluation to exclude secondary causes. -Low bone mass at the hip or spine and a 10-year fracture probability by FRAX of greater than or equal to 3% for hip fracture or greater than or equal to 20% for major osteoporotic fracture based on the [place] adapted WHO algorithm. 4. Other Recommendations: All treatment decisions require clinical judgment and consideration of individual patient factors, including patient preferences, comorbidities, previous drug use, risk factors not captured in the FRAX model (e.g. frailty, falls, vitamin D deficiency, increased bone turnover, interval significant decline in bone density) and possible under or overestimation of fracture risk by FRAX. Additional medical evaluation for secondary cause of low bone mineral density may be appropriate. FUTURE SCAN RECOMMENDATION: People with diagnosed cases of osteoporosis or at high risk for fracture should have regular bone mineral density tests. For patients eligible for Medicare, routine testing is allowed once every 2 years. The testing frequency can be increased to one year for patients who have rapidly progressing disease, those who are receiving or discontinuing medical therapy to restore bone mass, or have additional risk factors.
== END 2024-05-05 10:54 | disposition home or self-care (01) ==
LOC: HO.MAMMO 10:53
PROVIDERS: PCP Internal Medicine; Visit Provider Internal Medicine
DX: Z13.820 Encounter for screening for osteoporosis (principal); M85.89 Other specified disorders of bone density and structure, multiple sites; Z78.0 Asymptomatic menopausal state
CPT/HCPCS: 77081

== ENCOUNTER 2024-12-16 08:42 | Outpatient (REF) | payer MEDICARE, SELFPAY ==
[2024-12-16 10:20] LABS: MANUAL DIFF FLAG NO
[2024-12-16 10:24] LABS: Basophils Absolute Auto 0.1 X10*3/uL (0.0-0.2); Basophils Percent Auto 0.7 % (0-2); Eosinophils Absolute Auto 0.2 X10*3/uL (0.0-0.4); Eosinophils Percent Auto 3.3 % (0-4); Hematocrit 40.8 % (37.0-47.0); Hemoglobin 13.7 g/dl (12.0-16.0); Imm Gran Abs Auto 0.02 X10*3/uL (0.00-0.03); Imm Gran Pct Auto 0.3 % (0.0-0.4); Lymphocytes Absolute Auto 1.1 X10*3/uL (1.2-4.9); Mean Corpuscular HGB Conc 33.6 g/dl (31.0-35.0); Mean Corpuscular Hemoglobin 28.8 pg (27.0-33.0); Mean Corpuscular Volume 85.9 fL (80.0-98.0); Mean Platelet Volume 11.1 fL (9.4-12.3); Monocytes Absolute Auto 0.5 X10*3/uL (0.1-1.2); Monocytes Percent Auto 6.7 % (2-11); Neutrophils Absolute Auto 4.8 x10*3/uL (2.0-8.3); Platelet Count 194 X10*3/uL (160-400); Red Blood Count 4.75 X10*6/uL (4.20-5.50); Red Cell Distribution Width 13.2 % (11.0-16.0); White Blood Count 6.7 X10*3/uL (4.8-10.8)
[2024-12-16 10:25] LABS: Appearance Urine Clear; Color Urine Yellow; Glucose Urine UA Negative (Negative); Leukocyte Esterase Urine Moderate (2+) (Negative); Nitrite Urine Negative (Negative); PH 7.5 (5.0-9.0); UMIC TRIGGER UACC YES; Urine Blood Negative (Negative); Urine Ketones Negative (Negative); Urine Protein Negative (Neg-Trace)
[2024-12-16 10:32] LABS: Bacteria Urine None Seen (None Seen); Hyaline Casts Urine 0-2 /LPF (0-2); RBC Urine 0-2 /HPF (0-2); Squamous Epithelial Cell Urine 0-2 /HPF (0-2); UACC Culture Trigger YES
[2024-12-16 11:14] LABS: Alanine Aminotransferase 14 U/L (0-31); Albumin Level 3.9 g/dL (3.5-5.0); Alkaline Phosphatase 65 U/L (39-117); Anion Gap 10 (12-20); Aspartate Amino Transferase 21 U/L (5-31); Bilirubin Total 0.6 mg/dL (0.0-1.0); Blood Urea Nitrogen 15 mg/dL (9-16); Calcium 9.1 mg/dL (8.4-10.2); Carbon Dioxide 28 mmol/L (22-29); Chloride 105 mmol/L (96-108); Cholesterol 109 mg/dL (<200); Estimated Glomerular Filt Rate 51; Glucose Random 89 mg/dL (60-115); HDL Cholesterol 54 mg/dL (>40); LDL Cholesterol Calculated 38 mg/dL (<100); Potassium 4.4 mmol/L (3.3-5.1); Sodium 139 mmol/L (135-145); Triglycerides 89 mg/dL (<150)
[2024-12-16 11:18] LABS: Vitamin D 25-OH Total 69.9 ng/mL (>30)
== END 2024-12-16 08:43 | disposition home or self-care (01) ==
LOC: HO.HMGCLDS 08:42
PROVIDERS: PCP Internal Medicine; Visit Provider Internal Medicine
DX: I10 Essential (primary) hypertension (principal); I25.10 Atherosclerotic heart disease of native coronary artery without angina pectoris; E55.9 Vitamin D deficiency, unspecified; R35.1 Nocturia
CPT/HCPCS: 36415; 80053; 80061; 81001; 82306; 85025; 87086

== ENCOUNTER 2024-12-27 10:21 | Outpatient (AMB) | payer MEDICARE, SELFPAY ==
[2024-12-27 10:27] VITALS: BP 120/74; PULSE 71; BMI 32.9
--- NOTE | 2024-12-27 10:27 | MHC.OFFVIS ---
Vital Signs 12/27/24 10:27 Height 5 ft 1 in Weight 174 lb 2.643 oz BMI 32.9 BP 120/74 Blood Pressure Location Lt brachial Position Sitting Pulse 71 Intake Visit Reasons: 1 yr fu Intake Note: 1 year follow-up with ekg feeling good Chocolate Coater Required: No Allergies pentazocine [From Talwin] Allergy (Severe, Verified 01/31/21 13:13) HALLUCINATIONS trimethoprim [From Bactrim] Allergy (Severe, Verified 01/31/21 13:13) FACIAL RASH meperidine [From Demerol] Allergy (Verified 01/31/21 13:13) Unknown morphine Allergy (Verified 01/31/21 13:13) Nausea and Vomiting sulfite Allergy (Verified 01/31/21 13:13) Unknown codeine [Codeine] Adverse Reaction (Severe, Verified 01/31/21 13:13) CONSTIPATION/ABDOMINAL PAIN Yhrhbyp-JWN-FgL Reductase Inhibitor [Hmg-Coa Reductase Inhibitors (Stati] Adverse Reaction (Severe, Verified 01/31/21 13:13) GI UPSET amoxacillin Allergy (Severe, Uncoded 01/15/21 15:33) rash sulfa Allergy (Severe, Uncoded 01/15/21 15:33) rash Medication List - Last Reconciled 12/27/24 by Edd Arevalo MD azelastine 2 sprays intranasal collagenase clostridium histo. topical DAILY evolocumab (Repatha SureClick) 140 mg subcut Q2W ezetimibe 10 mg PO DAILY famotidine 20 mg PO BID PRN gabapentin 300 mg PO TID isosorbide mononitrate ER 60 mg PO DAILY losartan 100 mg PO DAILY metoprolol succinate ER 50 mg PO DAILY mirabegron ER (Myrbetriq) 50 mg PO DAILY nitroglycerin 0.4 mg sublingual .Q5MINS PRN sertraline 50 mg PO DAILY HPI Comments Details: Yara comes for follow-up. Last year she has been doing well and she has not had any cardiac symptoms although she was slowed down. She does have balance issues and has had few falls but is currently very aware and trying to avoid any falls. She has been taking all her medications. Amlodipine was discontinued due to persistent significant leg edema that was difficult for her to deal with. She is currently treating her sleep apnea by change in his sleeping position. She has not had any overt other cardiac symptoms of orthopnea, PND, leg edema, abdominal distension. Denies any exertional chest pain. No palpitations, lightheadedness, syncope. [facility] Medical History Nocturia Urgency incontinence Hx of basal cell carcinoma COVID-19 vaccine series completed Anxiety Peripheral neuropathy Hyperlipidemia HTN (hypertension) CAD (coronary artery disease) Surgical History Hx of fusion of cervical spine History of cataract extraction H/O angioplasty Stented coronary artery Hx of bilateral salpingo-oophorectomy Hx of hernia repair Hx of spinal fusion Hx laparoscopic cholecystectomy Family History Father No problems noted. Mother CVD (cardiovascular disease) Review of Systems Const Denies chills, Denies fatigue, Denies fever(s), Denies frequent falls, Denies weakness, Denies weight gain and Denies weight loss ENT Denies dizziness Card Denies chest pain, Denies leg edema, Denies lightheadedness, Denies palpitations, Denies dyspnea, Denies dyspnea on exertion, Denies orthopnea and Denies other (loss of consciousness) Resp Denies cough, Denies dyspnea and Denies dyspnea on exertion GI Denies hematochezia and Denies change in stool character Musc Denies abnormal gait, Denies muscle weakness, Denies numbness, Denies radiating pain into limb and Denies tingling Neuro Denies abnormal gait, Denies dizziness, Denies frequent falls, Denies numbness, Denies tingling and Denies weakness Endo Denies fatigue and Denies palpitations Physical Exam Vital Signs: Last Vital Signs Pulse 71 12/27/24 10:27 BP 120/74 12/27/24 10:27 BMI result Body Mass Index 32.9 Const General: cooperative, comfortable, no acute distress, alert and awake Nutritional Appearance: obese Orientation/consciousness: patient oriented x3 Limitations: no limitations Neck Neck: Yes trachea midline, Yes supple and Yes no JVD Carotids: no bruits Resp Effort & Inspection: normal respiratory effort Auscultation: clear to auscultation bilaterally Cardio Jugular venous distension: no JVD Palpation: normal PMI Rate: regular rate Rhythm: regular rhythm Heart sounds: S1 normal heart sound present and S2 normal heart sound present Skin General skin exam: no rashes or lesions noted Neuro General: patient oriented x3 and no focal motor deficits Extrem General: Yes no clubbing, cyanosis or edema Psych Appearance: grossly normal Office Procedures EKG Details: EKG shows normal sinus rhythm with minimal voltage criteria for LVH with poor R-wave progression from V2 V3 most likely due to lead placement [id number]-Hqyrmrxifqvcmwdpy, Complete Assessment & Plan Assessment & Plan (1) CAD (coronary artery disease): Comment: Denies recent chest pain Code(s): I25.10 - Atherosclerotic heart disease of [place] coronary artery without angina pectoris Category: Medical Plan: Stable CAD, she comes for follow-up after a long gap. She has not had any new concerning symptoms at this point time. No further workup is indicated at this point time. Continue low-dose aspirin therapy for life. Continue aggressive risk factor modification with aggressive blood pressure control which is well optimized. Continue PCSK9 inhibitor therapy along with ezetimibe. Target goal LDL less than 70 mg/dL. Will obtain lipid panel from your office. Encouraged to maintain activity level as tolerated , taking care of fall risk. (2) HTN (hypertension): Code(s): I10 - Essential (primary) hypertension Category: Medical Plan: Hypertension which is currently well optimized advised to continue current therapy. Importance of good blood pressure control was discussed. Target goal blood pressure less than 130/84. Low-salt diet was discussed. Stress mitigation strategies was discussed. Continue sleep apnea therapy with position changes, could not tolerate CPAP therapy. Will follow up in the clinic in 1 year's time, sooner p.r.n.. Thank you for allowing me to partake in her care Coding Level of Care Code Est Pt Level 4 (11498) Complex EM visit Add On G2211 Diagnoses CAD (coronary artery disease) I25.10 HTN (hypertension) I10 CPT Codes EKG - CPT: 65580-Iqjglzxvujrygsazr, Complete ([id number])
--- OUTSIDE RECORDS SUMMARY | 2024-12-27 12:17 | XMS_ITS | Patient Health Record ---
Author Organization [facility] [place] Address [address] [place] [address] Care Team Providers Care General Ledger Bookkeeper Name Role Phone Zelalem Serrano MD Primary Care Provider Karol Lyon Unavailable [phone] Allergies Allergen (clinical drug ingredient) Drug/Non Drug Allergy documented on EMR Reaction Allergy Type Onset Date Status amoxicillin Amoxicillin rash Drug Allergy Act génesis sulfamethoxazole / trimethoprim Bactrim rash Drug Allergy Active meperidine Demerol Unknown Drug Allergy Active erythromycin Erythromycin rash Drug Allergy A ctive lovastatin Lovastatin pain/bloating Drug Allergy A ctive Simvastatin pain/bloating Drug Allergy A ctive Talwin hallucination Drug Allergy Act génesis codeine Codeine rash Drug Allergy Active amlodipine Amlodipine Unknown Drug Allergy Activ e morphine Morphine Unknown Drug Allergy Active Substance with 8-gheldau-7-methylglut aryl-coenzyme A reductase inhibitor mechanism of action (substance) Statins Unknown Drug Allergy Active Reason For Referral No Information Medications Medication SIG (Take, Route, Frequency, Duration) Notes Start Date End Date Status Vitamin D Active Aspir-81 Active Isosorbide Mononitrate 60 Active Vitamin C 1000 MG 1 tablet Orally Once a day for 30 day(s) Active Praluent 75 MG/ML as directed Subcutaneous Not-Taking Nitrostat 0.4 MG as directed Sublingual Active Astelin Active Vitamin D3 400 UNIT 1 tablet Orally Once a day Active Advil 200 MG 2 tablet with food o r milk as needed Orally PRN Active Zoloft 50 MG 1 tablet Orally Once a day for 30 day(s) Active Vitamin B12 1000 MCG 1 tablet Orally Onc e a day for 30 day(s) Active Zantac 150 MG 1 tablet at bedtime Orally Once a day for 30 day(s) Active Repatha Active Gas-X 80 MG 1 tablet after meals and at bedtime as needed Orally Four times a day Active Gabapentin 600 MG 1 tablet Orally Once a day for 30 day(s) Active Metoprolol & Diet Manage Prod Active Myrbetriq 50 MG 1 tablet Orally Once a day for 30 day(s) Active Zetia 10 MG 1 tablet Orally Once a day for 30 day(s) Active Tylenol Extra Strength 500 MG 2 tablet as needed Orally Active Lovaza 1 GM 2 capsules Orally Tw ice a day for 30 day(s) Not-Taking Sertraline HCl Activ e Losartan Potassium 100 MG 1 tablet Orally Once a day Active Cephalexin 500 MG 1 tablet Orally Twic e a day for 5 days Active Social History Tobacco Use: Social History Observation Description Date Details (start date - stop date) Never Smoker NA - NA Tobacco Use/Smoking Question Answer Notes Are you a: nonsmoker Additional Findings: Tobacco Non-User Current no n-smoker Alcohol Screen Question Answer Notes Did you have a drink containing alcohol in the p ast year? No Points 0 Interpretation Negative Tobacco use other than smoking: Question Answer Notes Are you an other tobacco user? No Problems Problem Type SNOMED Code ICD Code Onset Dates Problem Status W/U Status Risk Notes Problem Pain in limb (62756680) Pain in Limb (729.5) Active confirmed Vital Signs Blood pressure diastolic 80 mm Hg 11/29/2024 Height 5 ft in 11/29/2024 Blood pressure systolic 130 mm Hg 11/29/2024 Weight 175 lbs 11/29/2024 BMI 34.17 kg/m2 11/29/2024 Encounters Encounter [facility] Date [facility] [address] [facility]/23/[facility]24 Karol Wong Xerosis of skin L85. 3 ; Onychomycosis B35.1 ; Ingrown nail L60.0 ; Pain in right toe(s) M79.674 and Pain in left toe(s) M79.[address] [address] 11/29/2024 Karol Wong Ingrown nail L60.[address] [address] 06/07/2024 Karol Wong [facility] [address] [place] [address] 11/25/2024 Karol Wong Assessments Encounter Date Diagnosis (ICD Code) Assessment Notes Treatment Notes Treatment Clinical Notes Section Notes 09/23/2024 Xerosis of skin (ICD-10 - L85.3) 09/23/2024 Onychomycosis (ICD-10 - B35.1) 11/29/2024 Ingrown nail (ICD-10 - L60.0) 09/23/2024 Ingrown nail (ICD-10 - L60.0) 09/23/2024 Pain in right toe(s) (ICD-10 - M79.674) 09/23/2024 Pain in left toe(s) (ICD-10 - M79.675) Plan Of Treatment Pending Test Test Name Order Date ,I7860-[id number] TENDON SHEATH/LIGAMENT 1 50,[id number] TENDON SHEATH/LIGAMENT 0 10/22/201170025,[id number] TENDON SHEATH/LIGAMENT 0 12/18/2011 Insurance Providers Payer Name Payer Address Payer Phone Subscriber Number Group Number Insured Name Patient Relationship to Insured Coverage Start Date Coverage End Date Medicare National Govt [employer] [address] [place] [address] [id number] Yara Bolivar Self - patient is the insured 3 [employer] [address] [place] [address] [phone] [id number] Yara Bolivar Self - patient is the insured Medical (General) History Medical History History ICD Code bone implants/screws measles chicken pox sinuse conditions reflux hypertension headaches/migraines gall bladder problems depression hyperlipidemia back, hip, pain Arthritis mumps neuropathy osteoarthritis Osteoporosis Sciatica Raynauds syndrome CAD (Cholesterol) Heart disease Surgical History Surgery Date(Month/Year) cervical fusions c4-5, c5-6 1989 cholecystectomy 2005 hysterectomy 1972 lumbar fusions L3-4 1990, 1992 umbilical hernia 2006 back surgery 07/27/19 right hip replacement
--- OUTSIDE RECORDS SUMMARY | 2024-12-27 12:17 | XMS_ITS ---
Author Organization [facility] Address [address] [place] [address] Care Team Providers Care Fire Officer Name Role Phone Zelalem Serrano MD Primary Care Provider Karol Lyon [phone] Problems No Known Problems Encounters Encounter Location Date Provider Diagnosis [facility] [address] [place] [address] 11/25/2024 Karol Wong Plan Of Treatment No Information Progress Notes * Yara BOLIVAR LDOB:[birth year] (79 yo F)Acc No.[id number]:11/25/2024 Patient:?Yara BOLIVAR :1945???Age:79 Y???Sex:Female Address:[address] [place] [address], [address] * true * Date:? Generated for Marcella kasper/Miranda/eTransmitting on:?12/27/2024 12:17 PM EDT
--- OUTSIDE RECORDS SUMMARY | 2024-12-27 12:17 | XMS_ITS ---
Author Organization [facility] Address [address] [facility] [place] [address] Care Team Providers Care Quenching Car Operator Name Role Phone Zelalem Serrano MD Primary Care Provider Karol Lyon Unavailable [phone] Allergies Allergen (clinical drug ingredient) Drug/Non Drug [...] Morphine Unknown Drug Allergy Active Substance with 8-drhbbjw-8-methylglut aryl-coenzyme A reductase inhibitor mechanism of action (substance) Statins Unknown Drug Allergy Active REASON FOR VISIT Ingrown Nail Medications Medication SIG (Take, Route, Frequency, Duration) Notes Start Date End Date Status Vitamin D3 400 UNIT 1 tablet Orally Once a day Active Zoloft 50 MG 1 tablet Orally Once a day for 30 day(s) Active Gas-X 80 MG 1 tablet after meals and at bedtime as needed Orally Four times a day Active Lovaza 1 GM 2 capsules Orally Tw ice a day for 30 day(s) Not-Taking Cephalexin 500 MG 1 tablet Orally Twic e a day for 5 days Active Isosorbide Mononitrate 60 Active Praluent 75 MG/ML as directed Subcutaneous Not-Taking Nitrostat 0.4 MG as directed Sublingual Active Zantac 150 MG 1 tablet at bedtime Orally Once a day for 30 day(s) Active Zetia 10 MG 1 tablet Orally Once a day for 30 day(s) Active Astelin Active Advil 200 MG 2 tablet with food o r milk as needed Orally PRN Active Metoprolol & Diet Manage Prod Active Tylenol Extra Strength 500 MG 2 tablet as needed Orally Active Losartan Potassium 100 MG 1 tablet Orally Once a day Active Vitamin D Active Aspir-81 Active Vitamin C 1000 MG 1 tablet Orally Once a day for 30 day(s) Active Vitamin B12 1000 MCG 1 tablet Orally Onc e a day for 30 day(s) Active Repatha Active Gabapentin 600 MG 1 tablet Orally Once a day for 30 day(s) Active Myrbetriq 50 MG 1 tablet Orally Once a day for 30 day(s) Active Sertraline HCl Activ e Social History Tobacco Use: Social History Observation Description Date Details (start date - stop date) Never Smoker NA - NA Tobacco Use/Smoking Question Answer Notes Are you a: nonsmoker Additional Findings: Tobacco Non-User Current no n-smoker Tobacco use other than smoking: Question Answer Notes Are you an other tobacco user? No Problems No Known Problems Vital Signs Blood pressure systolic 130 mm Hg 11/30/19 25 Blood pressure diastolic 80 mm Hg 025 Height 5 ft in 11/29/2024 Weight 175 lbs 11/29/2024 BMI 34.17 kg/m2 11/29/2024 Encounters Encounter Location Date Provider Diagnosis [facility] [address] [address] 11/29/2024 Karol Wong Ingrown nail L60.0 Assessments Encounter Date Diagnosis (ICD Code) Assessment Notes Treatment Notes Treatment Clinical Notes Section Notes 11/29/2024 Ingrown nail (ICD-10 - L60.0) Plan Of Treatment Next Appt Details Follow Up: prn, Reason: Procedure Notes * Category Sub-Category Detail Notes Nail Avulsion Procedure A fine sterile e levator was placed between the eponychium, nail fold, and nail plate to separate the structures. A sterile nail splitter, and/or sterile 316 blade, was then used to longitudinally section the nail along its entire length through the eponychium to the area under the nail fold. The offending portion of nail was from the nail bed with a rolling action and then removed with a hemostat. No underlying bone was identified. There was minimal bleeding as hemostasis was achieved through the temporary use of either a digital tourniquet or the aforementioned local with epinephrine. A bacitracin sterile dressing was applied. Local wound aftercare instructions were discussed and dispensed. The patient was informed of both conservative and future surgical procedures to prevent recurrence. Tylenol or Motrin was recommended for pain or discomfort (47066) Anesthesia 3cc of 1 percent Lid ocaine Plain local anesthesic utilizing aseptic technique Location Bilateral nail SHAR [facility]ott Progress Notes * Yara BOLIVAR LDOB:[birth year] (79 yo F)Acc No.[id number]:11/29/2024 Progress Note Patient:?Yara BOLIVAR Provider:?Karol Wong DPM :1945???Age:79 Y???Sex:Female D ate:11/29/2024 Address:[address] [place], [place] [id number] Pcp:Zelalem Serrano MD Subjective: * Chief Complaints: * ???Ingrown Nail * ROS:?General/Constitutional:?Nausea?denies.?Vomiting?denies.?Hunger Thirst?denies.?Loss appetite?denies.?Chills?denies.?Fatigue?denies.?Fever?denies.?Night Sweats?denies.?Unexplained weight loss?denies.?Unexplained weight gain?denies.?HEENTM:?Dentures?denies.?Dizziness?denies.?Glasses/contacts?admits.?Retinopathy?de nies.?Blurred/double vision?denies.?TMJ?denies.?Discharge/drainage?denies.?Implants?denies.?Sore throat?denies.?Dental implants?admits.?Hard of hearing ?denies.?Difficulty chewing/swallowing/speaking?denies.?Nose bleeds?denies.?Sore mouth?denies.?Respiratory:?On Oxygen?denies.?Pneumonia/pleurisy?denies.?Bronchitis?denies.?Emphysema?denies.?C oughing?denies.?Cough blood?denies.?Shortness of breath?denies.?Wheezing?denies.?Cardiovascular:?Pacemaker?denies.?MVP?denies.?WPW?denies.?CHF?denies.?Heart attack?denies.?Septal defect?denies.?Rapid beat?denies.?Chest pain ?denies.?Atrial Fib.?denies.?Murmur/Palpitations?denies.?Gastrointestinal:?Hemorrhoids?denies.?Stomach/Abdominal pain?denies.?Dark blood stool?denies.?Irritable bowel ?denies.?Constipation?denies.?Diarrhea?denies.?Hematology:?Swelling?denies.?Clots?denies.?Varicose Veins?denies.?Bruising?denies.?Bleeding problem?denies.?Genitourinary:?Blood urine?denies.?Frequent/Painfu/urination/bladder control?denies.?Kidney stones?admits.?Infection (UTI)?denies.?Nephropathy?denies.?sex trans dis (STD)?denies.?Prostate?denies.?Musculoskeletal:?Hammertoes?denies.?Bunions?denies.?Back Pain?admits.?Muscle Cramps/ Resting?denies.?Muscle cramps / walking?admits.?Generalized aches and pains?admits.?Weakness?denies.?Integ.:?Pino?denies.?Scars?admits.?Corns/calluses?denies.?Ingrown nails?admits.?Painful nails?denies.?Open Sores?denies.?Rashes?denies.?Neurologic:?Difficulty sleeping?denies.?Brain disorder?denies.?Numbness?admits.?Balance trouble?admits.?Confusion?denies.?Fainting/blackouts?denies.?Tingling?admits.?Tr emors?denies.? * Medical History:? * Surgical History:?cervical f usions c4-5, c5-6 1989cholecystectomy 2005hysterectomy 1972lumbar fusions L3-4 1990, 1992umbilical hernia 2006back surgery 07/27/19right hip replacement * Hospitalization/Major Diagno stic Procedure:?Denies Past Hospitalization * Family History:?Mother: dece ased, heart attack, hypertension.?Father: , in WW.?Maternal Grand Mother: cancer.? * Social History:?Tobacco Use:?Tobacco Use/Smoking?Are you a:?nonsmoker ?Additional Findings: Tobacco Non-User?Current non-smoker ?Tobacco use other than smoking?Are you an other tobacco user??No ???Miscellaneous:?Caffeine: yes, 3-5 cups per day. ?Children: yes, 3. ?Exercise: yes, walking when able, reading, sewing, painting, crocheting. ?Marital status: . ?Occupation: Retired. * Medications:?TakingSertralin e HCl Gabapentin 600 MG Tablet 1 tablet Orally Once a day Myrbetriq 50 MG Tablet Extended Release 24 Hour 1 tablet Orally Once a day Aspir-81 Vitamin C 1000 MG Tablet 1 tablet Orally Once a day Vitamin D Vitamin B12 1000 MCG Tablet Extended Release 1 tablet Orally Once a day Repatha Astelin Advil 200 MG Tablet 2 tablet with food or milk as needed Orally PRN Tylenol Extra Strength 500 MG Tablet 2 tablet as needed Orally Losartan Potassium 100 MG Tablet 1 tablet Orally Once a day Metoprolol & Diet Manage Prod Zetia 10 MG Tablet 1 tablet Orally Once a day Isosorbide Mononitrate 60 mg Nitrostat 0.4 MG Tablet Sublingual as directed Sublingual Zantac 150 MG Tablet 1 tablet at bedtime Orally Once a day Gas-X 80 MG Tablet Chewable 1 tablet after meals and at bedtime as needed Orally Four times a day Vitamin D3 400 UNIT Tablet 1 tablet Orally Once a day Zoloft 50 MG Tablet 1 tablet Orally Once a day Cephalexin 500 MG Tablet 1 tablet Orally Twice a day Taking Sertraline HCl Taking Gabapentin 600 MG Tablet 1 tablet Orally Once a day Taking Myrbetriq 50 MG Tablet Extended Release 24 Hour 1 tablet Orally Once a day Taking Aspir-81 Taking Vitamin C 1000 MG Tablet 1 tablet Orally Once a day Taking Vitamin D Taking Vitamin B12 1000 MCG Tablet Extended Release 1 tablet Orally Once a day Taking Repatha Taking Astelin Taking Advil 200 MG Tablet 2 tablet with food or milk as needed Orally PRN Taking Tylenol Extra Strength 500 MG Tablet 2 tablet as needed Orally Taking Losartan Potassium 100 MG Tablet 1 tablet Orally Once a day Taking Metoprolol & Diet Manage Prod Taking Zetia 10 MG Tablet 1 tablet Orally Once a day Taking Isosorbide Mononitrate 60 mg Taking Nitrostat 0.4 MG Tablet Sublingual as directed Sublingual Taking Zantac 150 MG Tablet 1 tablet at bedtime Orally Once a day Taking Gas-X 80 MG Tablet Chewable 1 tablet after meals and at bedtime as needed Orally Four times a day Taking Vitamin D3 400 UNIT Tablet 1 tablet Orally Once a day Taking Zoloft 50 MG Tablet 1 tablet Orally Once a day Taking Cephalexin 500 MG Tablet 1 tablet Orally Twice a day Not-Taking/PRNPraluent 75 MG/ML Solution Pen- injector as directed Subcutaneous Lovaza 1 GM Capsule 2 capsules Orally Twice a day Medication List reviewed and reconciled with the patientNot-Taking/PRN Praluent 75 MG/ML Solution Pen-injector as directed Subcutaneous Not-Taking/PRN Lovaza 1 GM Capsule 2 capsules Orally Twice a day Medication List reviewed and reconciled with the patient * Allergies:?Amoxicillin: rash Bactrim: rashTalwin: hallucinationCodeine: rashSimvastatin: pain/bloatingLovastatin: pain/bloatingErythromycin: rashMorphineDemerolAmlodipineStatinsyes[Allergies Verified] Objective: * Vitals:?Ht: 5 ft, Wt: 175, B DC: 34.17, Shoe size: 8.5, BP: 130/80 mm Hg, Ht-cm: 152.4 cm, Wt-k.38 kg. * Examination: ???Ingrown Nail: ?INSPECTION:?Reveals nail incurvation, pain on palpation, groove hypertrophy, Bilateral nail borders, TA.? Assessment: * Assessment: 1.?Ingrown nail - L60.0 (Rosalind pierre)??? Plan: * Treatment: * Procedures:?Nail Avulsion:?Location?Bilateral nail border, TA.?Anesthesia?3cc of 1 percent Lidocaine Plain local anesthesic utilizing aseptic technique.?Procedure?A fine sterile elevator was placed between the eponychium, nail fold, and nail plate to separate the structures. A sterile nail splitter, and/or sterile 316 blade, was then used to longitudinally section the nail along its entire length through the eponychium to the area under the nail fold. The offending portion of nail was from the nail bed with a rolling action and then removed with a hemostat. No underlying bone was identified. There was minimal bleeding as hemostasis was achieved through the temporary use of either a digital tourniquet or the aforementioned local with epinephrine. A bacitracin sterile dressing was applied. Local wound aftercare instructions were discussed and dispensed. The patient was informed of both conservative and future surgical procedures to prevent recurrence. Tylenol or Motrin was recommended for pain or discomfort (17493).? * Procedure Codes:?30782 Avuls ion Plate, Modifiers: TA * Follow Up:?prn * Images: * Sign off status: Completed true * Provider:?Karol Wong DPM Date:?07/2025 Generated for Marcella kasper/Miranda/Hannah on:?12/27/2024 12:16 PM EDT History and Physical Notes * Examination Category Sub-Category Detail Notes Category Not es Ingrown Nail INSPECTION: Reveals nail inc urvation, pain on palpation, groove hypertrophy, Bilateral nail borders, TA
--- OUTSIDE RECORDS SUMMARY | 2024-12-27 12:17 | XMS_ITS ---
Author Organization [facility] Address [address] [place] [address] Care Team Providers Care Radiological Technician Name Role Phone Zach RUBY, Zelalem Primary Care Provider Karol Lyon [phone] Problems No Known Problems Encounters Encounter Location Date Provider Diagnosis [facility] [address] [place] [address] 11/25/2024 Karol Wong Plan Of Treatment No Information Progress Notes * Yara BOLIVAR LDOB:[birth year] (79 yo F)Acc No.[id number]:11/25/2024 Progress Note Patient:?Yvonne BOLIVARra Shaye Provider:?Karol Wong DPM :1945???Age:79 Y???Sex:Female D ate:11/25/2024 Address:[address] [place], [place] [id number] Pcp:Zelalem Serrano MD Subjective: * Chief Complaints: * ??? * Medical History:? Objective: * Vitals:? Assessment: Plan: * Treatment: * Images: * The named appointment provid er may or may not be the originator of this progress note, and it is not deemed complete until electronically signed by the appointment provider. Sign off status: Pending * Provider:?Karol Wong DPM Date:?03/2025 Generated for Josiei ranjith/Miranda/eTransmitting on:?12/27/2024 12:16 PM EDT
== END 2024-12-27 11:01 | disposition home or self-care (01) ==
LOC: HO.HCS 10:21
PROVIDERS: PCP Internal Medicine; Visit Provider Internal Medicine Cardiovascular Disease
DX: I25.10 Atherosclerotic heart disease of native coronary artery without angina pectoris (principal); I10 Essential (primary) hypertension
CPT/HCPCS: 93010; 99214; G2211

== ENCOUNTER → 2024-12-27 10:21 | Outpatient (BNVA) | payer MEDICARE, SELFPAY | PROVIDERS: PCP Internal Medicine; Visit Provider Internal Medicine Cardiovascular Disease | DX: I25.10 Atherosclerotic heart disease of native coronary artery without angina pectoris (principal); I10 Essential (primary) hypertension; R94.31 Abnormal electrocardiogram [ECG] [EKG] | CPT/HCPCS: 93005; 99212 ==

== ENCOUNTER 2025-01-25 11:45 | Outpatient (REF) | payer MEDICARE, SELFPAY ==
--- NOTE | ~2025-01-25 | XR_ITS ---
EXAMINATION: X-ray lumbar spine. CLINICAL INFORMATION: No back pain. TECHNIQUE: AP oblique and lateral views. COMPARISON: January 21, 2016. FINDINGS: Chest pedicle screws at L3 and L4 bilaterally. Metallic hardware at the posterior spinous processes L5-S1. Grade 1 anterolisthesis L4-5. S-shaped curvature of the thoracolumbar spine dextroconvex at the thoracolumbar junction and levoconvex apex at L4. Multilevel marginal osteophyte formation and endplate sclerosis and decreased intervertebral disc height more pronounced at L1-2. No acute cortical disruption. Metallic prosthesis, right hip no fully included. Vascular clips right upper quadrant abdomen. XR/XR lumbar spine 4V min IMPRESSION: Rotoscoliosis and multilevel thoracolumbar spondylosis. Grade 1 anterolisthesis L4-5 similar since prior exam. Posterior lumbar fusion L3-4 and metallic hardware posterior spinous processes L5-S1. New right-sided. Prosthesis. Electronically signed by: Moises Fay MD 01/25/2025 12:47 PM EDT
--- OUTSIDE RECORDS SUMMARY | 2025-01-25 13:10 | XMS_ITS ---
Author Organization [facility] Address [address] [place] [address] Care Team Providers Care Company Tanker Truck Driver Name Role Phone Zelalem Serrano MD Primary Care Provider Karol Lyon [phone] Problems No Known Problems Encounters Encounter Location Date Provider Diagnosis [facility] [address] [place] [address] 11/25/2024 Karol Wong Plan Of Treatment No Information Progress Notes * Yara BOLIVAR LDOB:[birth year] (79 yo F)Acc No.[id number]:11/25/2024 Patient:?Yara BOLIVAR :1945???Age:79 Y???Sex:Female Address:[address] [place] [address], [address] * true * Date:? Generated for Marcella kasper/Miranda/eTransmitting on:?01/25/2025 01:10 PM EDT
--- OUTSIDE RECORDS SUMMARY | 2025-01-25 13:10 | XMS_ITS ---
Author Organization [facility] Address [address] [place] [address] Care Team Providers Care Digital Marketing Apprentice Name Role Phone Zach RUBY, Zelalem Primary Care Provider Karol Lyon [phone] Problems No Known Problems Encounters Encounter Location Date Provider Diagnosis [address] [address] 11/25/2024 Karol Wong Plan Of Treatment No Information Progress Notes * Yara BOLIVAR LDOB:[birth year] (80 yo F)Acc No.[id number]:11/25/2024 Progress Note Patient:?Yvonne BOLIVARra Shaye Provider:?Karol Wong DPM :1945???Age:79 Y???Sex:Female D ate:11/25/2024 Address:[address] [place], [place] [id number] Pcp:Zelalem Serrano MD Subjective: * Chief Complaints: [...] Wong DPM Date:?03/2025 Generated for Josiei ranjith/Miranda/eTransmitting on:?01/25/2025 01:10 PM EDT
--- OUTSIDE RECORDS SUMMARY | 2025-01-25 13:10 | XMS_ITS ---
Author Organization [facility] Address [address] [facility] [place] [address] Care Team Providers Care Entry Level Recruiter Name Role Phone Zelalem Serrano MD Primary Care Provider aKrol Lyon Unavailable [phone] Allergies Allergen (clinical drug ingredient) Drug/Non Drug [...] Morphine Unknown Drug Allergy Active Substance with 0-psnbxsp-3-methylglut aryl-coenzyme A reductase inhibitor mechanism of action [...] No Problems No Known Problems Vital Signs Height 5 ft in 11/29/2024 Weight 175 lbs 11/29/2024 BMI 34.17 kg/m2 11/29/2024 Blood pressure systolic 130 mm Hg 11/30/19 25 Blood pressure diastolic 80 mm Hg 025 Encounters Encounter Location Date Provider Diagnosis [facility] [address] [address] 11/29/2024 Karol Wong Ingrown nail L60.0 Assessments [...] Motrin was recommended for pain or discomfort (91131) Anesthesia 3cc of 1 percent Lid ocaine Plain local anesthesic utilizing aseptic technique Location Bilateral nail [facility]AR [facility]ott Progress Notes * Yara BOLIVAR LDOB:[birth year] (79 yo F)Acc No.[id number]:11/29/2024 Progress Note Patient:?Yara BOLIVAR Provider:?Karol Wong DPM :1945???Age:79 Y???Sex:Female D ate:11/29/2024 Address:[address] [place], [place] [address] Pcp:Zelalem Serrano MD Subjective: * Chief Complaints: [...] * Vitals:?Ht: 5 ft, Wt: 175, B TX: 34.17, Shoe size: 8.5, BP: 130/80 mm [...] Motrin was recommended for pain or discomfort (50277).? * Procedure Codes:?16291 Avuls ion Plate, Modifiers: TA * Follow Up:?prn * Images: * Sign off status: Completed true * Provider:?Karol Wong DPM Date:?07/2025 Generated for Marcella kasper/Miranda/Hannah on:?01/25/2025 01:10 PM EDT History and Physical Notes * Examination Category Sub-Category Detail Notes Category Not es Ingrown Nail INSPECTION: Reveals nail inc urvation, pain on palpation, groove hypertrophy, Bilateral nail borders, TA
--- OUTSIDE RECORDS SUMMARY | 2025-01-25 13:10 | XMS_ITS | Patient Health Record ---
Author Organization [facility] [place] Address [address] [place] [address] Care Team Providers Care Technical Manager Name Role Phone Zelalem Serrano MD Primary Care Provider Karol Lyon Unavailable [phone] Allergies Allergen (clinical drug ingredient) Drug/Non Drug [...] Morphine Unknown Drug Allergy Active Substance with 0-fxfpaxz-6-methylglut aryl-coenzyme A reductase inhibitor mechanism of action [...] W/U Status Risk Notes Problem Pain in Limb (729.5) Active confirmed Vital Signs Blood pressure diastolic 80 mm Hg 11/29/2024 Height 5 ft in 11/29/2024 Blood pressure systolic 130 mm Hg 11/29/2024 Weight 175 lbs 11/29/2024 BMI 34.17 kg/m2 11/29/2024 Encounters Encounter Location Date Provider Diagnosis [address] [address] 09/23/2024 Karol Wong Xerosis of skin L85. 3 ; Onychomycosis B35.1 ; Ingrown nail L60.0 ; Pain in right toe(s) M79.674 and Pain in left toe(s) M79.[address] [address] 11/29/2024 Karol Wong Ingrown nail L60.[address] [address] 06/07/2024 Karol Wong [address] [place] [address] 11/25/2024 Karol Wong Assessments Encounter Date Diagnosis [...] Treatment Pending Test Test Name Order Date ,[id number] TENDON SHEATH/LIGAMENT 1 ,[id number] TENDON SHEATH/LIGAMENT 0 10/22/201125487,[id number] TENDON SHEATH/LIGAMENT 0 12/18/2011 Insurance Providers Payer Name Payer Address Payer Phone Subscriber Number Group Number Insured Name Patient Relationship to Insured Coverage Start Date Coverage End Date Medicare National [employer] [address] [place] [address] [id number] Yara Bolivar Self - patient is the insured 3 [employer] [address] [place] [address] [id number] Yara Bolivar Self - patient is the insured Medical (General) History Medical History History ICD Code bone implants/screws measles chicken pox sinuse conditions reflux hypertension headaches/migraines gall bladder problems depression hyperlipidemia back, hip, pain Arthritis mumps neuropathy osteoarthritis Osteoporosis Sciatica Raynauds syndrome CAD (Cholesterol) Heart disease Surgical History Surgery Date(Month/Year) cervical fusions c4-5, c5-6 1989 cholecystectomy 2004 hysterectomy 1972 lumbar fusions L3-4 1990, 1992 umbilical hernia 2006 back surgery 07/27/19 right hip replacement
== END 2025-01-25 11:46 | disposition home or self-care (01) ==
LOC: HO.XRAY 11:45
PROVIDERS: PCP Internal Medicine; Visit Provider Chiropractor
DX: M54.50 Low back pain, unspecified (principal)
CPT/HCPCS: 72110

== ENCOUNTER → 2025-01-25 11:53 | Outpatient (BNV) | payer MEDICARE, SELFPAY | PROVIDERS: PCP Internal Medicine; Visit Provider Radiology Diagnostic Radiology | DX: M47.815 Spondylosis without myelopathy or radiculopathy, thoracolumbar region (principal); M43.26 Fusion of spine, lumbar region; M41.84 Other forms of scoliosis, thoracic region | CPT/HCPCS: 72110 ==